=== PATIENT | male | born 1975 | race Caucasian/White ===

== ENCOUNTER 2019-01-16 14:59 | Inpatient (IN) ==
[2019-01-16] MEDS ORDERED: MoRPHine SULFATE 10 MG/ML CARP/VIAL IV STA (15:19)
[2019-01-16] MEDS ORDERED: ONDANSETRON INJ 2 MG/ML 2 ML VIAL IV STA (15:19)
--- NOTE | 2019-01-16 15:43 | Emergency Department Note ---
History of Present Illness General Chief complaint: Groin Pain Stated complaint: L INGUINAL PAIN Time Seen by Provider: 01/16/19 15:10 History of Present Illness Maximum Pain Intensity: 10 43-year-old male [employer] inmate who presents to emergency department with complaint of progressively worsening swelling and pain in the left scrotum and hip region. The patient was in the emergency department 3 days ago with similar pain. He had a CT scan of the abdomen, as well as testicular ultrasound that showed a moderate sized nonreducible fat filled left inguinal hernia and moderate sized left hydrocele. The patient was evaluated on his last visit by Dr. Odonnell, general surgeon, who indicated that emergent surgery was not warranted, and that the patient should follow-up with his general surgeon at [facility] for further management. The patient reports that he has not seen that surgeon within the past 3 days, likely secondary to the holiday. The patient reports that he is unable to eat because of nausea and vomiting. He also reports blood in his urine. He denies any prior history of testicular injuries, swelling or urinary difficulties. He also denies history of kidney stones. The patient rates his discomfort a 10 out of 10. Home Medications Home Medications Medication Instructions Recorded Confirmed Type aspirin [Aspir-81] 81 mg PO DAILY 01/13/19 01/16/19 History atorvastatin 40 mg PO HS 01/13/19 01/16/19 History fluoxetine 20 mg PO HS 01/13/19 01/16/19 History insulin glargine [Lantus Solostar 30 unit SUBCUT .DAILY AT 1630 01/13/19 01/16/19 History U-100 Insulin] insulin regular human [Humulin R 1 sliding scale dose SUBCUT 01/13/19 01/16/19 History Regular U-100 Insuln] USEASDIRECTD levetiracetam 250 mg PO HS 01/13/19 01/16/19 History lisinopril 5 mg PO DAILY 01/13/19 01/16/19 History trazodone 50 mg PO HS 01/13/19 01/16/19 History ibuprofen 600 mg PO TID PRN 01/16/19 01/16/19 History Allergies Allergy/AdvReac Type Severity Reaction Status Date / Time iodine Allergy Severe Unknown Verified 01/16/19 15:25 shellfish derived Allergy Severe Unknown Verified 01/16/19 15:25 penicillin G Allergy Unknown Verified 01/16/19 21:23 Past Med/Surg History Medical History Hydrocele in adult Epilepsy Hyperlipidemia Hypertension Type 1 diabetes Surgical History Status post left inguinal herniorrhaphy Family History Other No pertinent family history in first degree relatives Social History Preferred Language: Romanian Communication Ability: Effective Ncr Operator Required: No Beliefs That Will Affect Care: None marital status: Single Current Living Situation: Other Current Living Situation Comment: [facility] current occupational status: employed Feels Safe at Home: Yes Smoking Status: Never smoker Hx Alcohol Use: No Hx Substance Use: No Review of Systems 10 system review was performed and was negative except for pertinent positives and negatives as indicated in history of present illness Physical Exam Vital Signs Vital Signs - 24 hr 01/16/19 15:03 01/16/19 16:07 01/16/19 16:58 Temperature 36.9 C Temperature Source Oral Sepsis Recent Fever Within 48 Hours No Sepsis Action Taken by Nursing No Action Required Pulse Rate 90 Pulse Rate [Finger] 89 73 Respiratory Rate 20 17 Respiratory Effort / Characteristics Non-Labored Respiratory Depth Normal Respiratory Pattern Regular Blood Pressure 88/62 L Blood Pressure [Right Arm] 105/63 101/61 Blood Pressure Mean 70 Blood Pressure Mean [Right Arm] 77 74 Pulse Oximetry 99 99 97 Oxygen Delivery Method Room Air Room Air Room Air 01/16/19 18:29 Temperature Temperature Source Sepsis Recent Fever Within 48 Hours Sepsis Action Taken by Nursing Pulse Rate Pulse Rate [Finger] 84 Respiratory Rate 16 Respiratory Effort / Characteristics Respiratory Depth Respiratory Pattern Blood Pressure Blood Pressure [Right Arm] 106/74 Blood Pressure Mean Blood Pressure Mean [Right Arm] 84 Pulse Oximetry 99 Oxygen Delivery Method Room Air CONSTITUTIONAL: Healthy and well nourished. Alert and oriented X 3. Patient appears in moderate discomfort. HEENT: Normocephalic, atraumatic. Pupils equal, round and reactive. No scleral icterus or conjunctival injection. NECK: Full active range of motion without discomfort. LYMPHATICS: No cervical chain adenopathy. RESPIRATORY: Clear to auscultation bilaterally with no wheezing, crackles, rhonchi or stridor. CARDIOVASCULAR: Regular rate and rhythm with no murmurs, rubs or gallops. GASTROINTESTINAL: Bowel sounds present in all quadrants. Patient has mild left lower quadrant tenderness to palpation. Surgical incision from the patient's recent inguinal herniorrhaphy has healed well without any induration, fluctuance or diastases. Negative McBurney's point tenderness. Negative CVA tenderness. No abdominal rigidity, guarding or rebound. genitourinary: The patient has a large palpable mass within the left scrotum. Testicle appears symmetric in size compared to the right. No urethral drainage or penile lesions. MUSCULOSKELETAL: Full range of motion of all joints without discomfort. No worsening pain with logroll of the left hip. He has mild discomfort with flexion and extension. INTEGUMENTARY: No rash or other significant dermatologic conditions noted. HEMATOLOGIC: No ecchymosis or petechiae. PSYCHIATRIC: Flat affect. NEUROLOGIC: No focal neurologic deficits noted. Course Patient history and physical exam were performed. Nurse's notes were reviewed. I did review documentation from the patient's last ED visit on 01/13/2019. As indicated in HPI, the patient did have CT of the abdomen and pelvis, and scrotal ultrasound that confirmed a moderate sized fat filled left inguinal hernia and moderate-sized left hydrocele. Sonographic appearance of the testicles and epididymis were normal. Vital signs from today were reviewed, showing a blood pressure of 88/62. Prior vital signs from the last visit were normal. The patient is not febrile or tachycardic. IV access was established, and labs were drawn. The patient was hydrated with a liter normal saline, and was administered IV morphine and Zofran for pain. Prior to imaging studies, I did consult Dr. Odonnell, general surgeon, who evaluated the patient on his last visit. Dr. Odonnell did come to the emergency department and reexamined the patient, and is certain that the patient is not experiencing symptoms secondary to incarcerated hernia, and recommended continued follow-up with his general surgeon who did his inguinal herniorrhaphy. He also recommended urology consultation as well, although he suspects that the appearance of the hydrocele has not likely changed as he reports that scrotal swelling is similar to his last exam 3 days ago. I therefore ordered a repeat scrotal ultrasound, showing concern for possible testicular ischemia versus torsion. The case was further discussed with Dr. Bailey, ED attending physician, who recommended urology consultation. I then discussed the case further with Dr. Singh, urologist on-call who indicated several different possibilities, including cord ischemia and testicular ischemia/torsion. He reported that he would review ultrasound studies and make a determination on conservative managem ent versus orchiectomy. He requested n.p.o. status, hospitalist consultation for admission, and broad-spectrum antibiotic coverage. I did discuss the case with our pharmacist who recommended Zosyn IV antibiotics. It was also suggested that Atul's gangrene was in the differentials, therefore CT of the pelvis with IV contrast was performed and did not show any findings of Atul's gangrene. I did discuss the case with the [facility] hospitalist service, who evaluated the patient and will be admitting the patient. Please see the hospitalist service and urologist dictations for further treatment and final disposition. Administered Medications Atorvastatin Calcium (Lipitor) 40 mg PO HS VERA Stop: 02/15/19 21:44 Last Admin: 01/16/19 22:26 Dose: 40 mg Documented by: [id number] Fluoxetine HCl (Prozac) 20 mg PO HS VERA Stop: 02/15/19 21:44 Last Admin: 01/16/19 22:26 Dose: 20 mg Documented by: [id number] Sodium Chloride (Nss 1000ml) 1,000 mls @ 125 mls/hr IV .Q8H VERA Stop: 01/17/19 13:15 Last Admin: 01/16/19 22:22 Dose: 125 mls/hr Documented by: [id number] Insulin Aspart (Novolog Flexpen) 0 units SC ACHS VERA Stop: 02/15/19 21:44 Last Admin: 01/16/19 22:43 Dose: 11 units Documented by: [id number] Cosigned by: [id number] Insulin Glargine (Lantus Solostar Pen) 30 units SQ DAILY@1630 VERA Stop: 02/15/19 21:44 Last Admin: 01/16/19 22:41 Dose: 30 units Documented by: [id number] Cosigned by: [id number] Ketorolac Tromethamine (Toradol) 30 mg IV Q6 VERA Stop: 01/21/19 22:29 Last Admin: 01/16/19 22:26 Dose: 30 mg Documented by: [id number] Levetiracetam (Keppra) 250 mg PO [facility] Stop: 02/15/19 21:44 Last Admin: 01/16/19 22:26 Dose: 250 mg Documented by: [id number] Trazodone HCl (Desyrel) 50 mg PO [facility] Stop: 02/15/19 21:44 Last Admin: 01/16/19 22:25 Dose: 50 mg Documented by: [id number] Discontinued Medications Hydromorphone HCl (Dilaudid) 1 mg IV NOW STA Stop: 01/16/19 17:26 Last Admin: 01/16/19 17:36 Dose: 1 mg Documented by: [id number] Hydromorphone HCl (Dilaudid) 1 mg IV NOW STA Stop: 01/16/19 20:15 Last Admin: 01/16/19 22:02 Dose: Not Given Documented by: [id number] Piperacillin Sod/Tazobactam Sod (Zosyn) 4.5 gm in 120 mls @ 240 mls/hr IV NOW ONE Stop: 01/16/19 17:41 Last Infusion: 01/16/19 17:48 Dose: 0 mls/hr Documented by: [id number] Admin: 01/16/19 17:17 Dose: 240 mls/hr Documented by: [id number] Ioversol (Optiray 320 100ml) 90 ml IV ONCE PRN PRN Reason: Interaction Checking Stop: 01/20/19 18:05 Last Admin: 01/16/19 18:07 Dose: 90 ml Documented by: [id number] Morphine Sulfate (Morphine Sulfate) 8 mg IV NOW STA Stop: 01/16/19 15:20 Last Admin: 01/16/19 15:45 Dose: 8 mg Documented by: [id number] Ondansetron HCl (Zofran) 4 mg IV NOW STA Stop: 01/16/19 15:20 Last Admin: 01/16/19 15:45 Dose: 4 mg Documented by: [id number] Medical Decision Making Medical Records Attestation: I reviewed the patient's medical records. Home Medications Current Medication List: was personally reviewed by me Laboratory Data Attestation: I reviewed the patient's lab results. Result diagrams: 01/16/19 15:40 01/16/19 15:40 Lab Results 07/07/19 07/07/19 Range/Units 15:40 15:40 WBC 10.89 H (4.8-10.8) K/uL RBC 4.31 L (4.7-6.1) M/uL Hgb 13.7 L (14.0-18.0) g/dL Hct 39.3 L (42-52) % MCV 91.2 (80-100) fL MCH 31.8 (25-34) pg MCHC 34.9 (32-36) g/dL RDW Std Deviation 43.3 (36.4-46.3) fL RDW Coeff of Molly 13.0 (11.5-14.5) % Plt Count 228 (130-400) K/uL MPV 10.8 H (7.4-10.4) fL Immature Gran % (Auto) 0.2 % Neut % (Auto) 75.1 % Lymph % (Auto) 14.0 % [place] % (Auto) 9.3 % Eos % (Auto) 1.1 % Baso % (Auto) 0.3 % Immature Gran # (Auto) 0.02 (0.00-0.02) K/uL Neut # (Auto) 8.18 H (1.4-6.5) K/uL Lymph # (Auto) 1.53 (1.2-3.4) K/uL [place] # (Auto) 1.01 H (0.11-0.59) K/uL Eos # (Auto) 0.12 (0-0.5) K/uL Baso # (Auto) 0.03 (0-0.2) K/uL Sodium 134 L (136-145) mmol/L Potassium 4.1 (3.5-5.1) mmol/L Chloride 97 L (98-107) mmol/L Carbon Dioxide 29 (21-32) mmol/L Anion Gap 8.0 (3-11) BUN 9 (7-18) mg/dl Creatinine 0.86 (0.6-1.4) mg/dl Est Cr Clr Drug Dosing 119.8 ml/min Est GFR ( Amer) 123.1 Est GFR (Non-Af Amer) 106.2 BUN/Creatinine Ratio 10.2 (10-20) Glucose 245 H (70-99) mg/dl Calcium 8.9 (8.5-10.1) mg/dl Total Bilirubin 0.7 (0.2-1) mg/dl AST 11 L (15-37) U/L ALT 15 (12-78) U/L Alkaline Phosphatase 88 (45-117) U/L Total Protein 7.8 (6.4-8.2) gm/dl Albumin 3.6 (3.4-5.0) gm/dl Globulin 4.2 H (2.5-4.0) gm/dl Albumin/Globulin Ratio 0.9 (0.9-2) Lipase 66 L (73-393) U/L Imaging Data Attestation: I personally reviewed and interpreted this imaging study as follows: My Impression: Ultrasound is concerning for vascular compromise to the left testicle. Complex moderate hydrocele containing septations and internal echoes are also noted on the right just report, and has slightly progressed from his last ultrasound [address] of the pelvis with IV contrast is not suggestive of Atul's gangrene. There is some enhancement within the scrotal wall, suggesting possibility of an infected hydrocele. Radiologist's Impression: TESTICULAR ULTRASOUND HISTORY: worsening L scrotal pain/mass - hernia hydrocele COMPARISON: Abdomen and pelvis CT 01/13/2019 and testicular ultrasound 01/13/2019. FINDINGS: Right testis: 4.8 x 4.0 x 3.7 cm. No right inguinal hernia. There are no intratesticular masses. Normal color flow. No hydrocele. The epididymis is unremarkable. Left testis: 4.5 x 3.2 x 2.9 cm. The testis demonstrates a heterogeneous echotexture with diminished flow in comparison to the right. Complex moderate hydrocele containing septations and internal echoes. IMPRESSION: 1. The left testis demonstrates a heterogeneous echotexture with diminished flow in comparison to the right. Therefore, this raises the possibility of vascular compromise/torsion. Urology consultation recommended. 2. Complex moderate hydrocele containing septations and internal echoes. This has slightly progressed. 3. No evidence for a right or left inguinal hernia. 3. These findings were discussed with the patient's physician assistant housekeeping manager, Salas Nuñez, at 4:45 PM on 01/16/2019. CT pelvis w/IV con only HISTORY: Scrotal swelling. R/O Atul's gangrene TECHNIQUE: Multiaxial CT images of the pelvis were performed following the use of intravenous contrast. COMPARISON STUDY: Abdomen and pelvis CT 01/13/2019. FINDINGS: Moderate left-sided hydrocele is again noted. There is enhancement within the scrotal wall which raises the possibility of an infected hydrocele. There is mild scrotal swelling. No soft tissue gas identified. Mild thickening and trace fluid within the left inguinal canal unchanged. This may be due to the recent operative change. The bladder is unremarkable. The visualized loops of bowel show no wall thickening or obstruction. No significant inguinal or pelvic lymphadenopathy. No fractures within the visualized osseous structures. IMPRESSION: 1. Moderate left-sided hydrocele which is not significantly changed. There is enhancement within the scrotal wall which raises the possibility of an infected hydrocele. 2. Mild scrotal swelling. No soft tissue gas identified. 3. Mild thickening and trace fluid within the left inguinal canal, unchanged. This may be due to the recent operative change. MDM Narrative Patient presents with progressively worsening pain and subjective progressive swelling of the left testicle and groin region. The patient has been evaluated by our general surgeon who does not feel that his current symptoms are secondary to his inguinal hernia. Ultrasound is concerning for possible testicular ischemia or torsion. Additional differentials considered include an cord injury, orchitis, infected hydrocele. At this point, I do not suspect acute cystitis, diverticulitis or other intra-abdominal etiologies. Impression & Plan Left hydrocele, Hernia, inguinal, left Discharge Plan Visit Data *Final* Discharge Date/Time: 01/16/19 21:09 Chief Complaint: Groin Pain Stated Complaint: L INGUINAL PAIN ED Provider: Ganesh Bailey ED Midlevel Provider: Joesph Nuñez Discharge Problem: Left hydrocele, Hernia, inguinal, left Patient Disposition: Admitted As Inpatient Discharge Instructions Interventions: ED Discharge Assessment Last Done: 01/16/19 21:09
[2019-01-16 15:48] LABS: Basophils # (auto) 0.03 K/uL (0-0.2); Basophils % (auto) 0.3 %; Eosinophils # (auto) 0.12 K/uL (0-0.5); Eosinophils % (auto) 1.1 %; Hematocrit (blood only) 39.3 % (42-52); Hemoglobin 13.7 g/dL (14.0-18.0); Immature Granulocytes # (auto) 0.02 K/uL (0.00-0.02); Immature Granulocytes % (auto) 0.2 %; Lymphocytes # (auto) 1.53 K/uL (1.2-3.4); Mean Corpuscular Hgb Conc 34.9 g/dL (32-36); Mean Corpuscular Volume 91.2 fL (80-100); Mean Platelet Volume 10.8 fL (7.4-10.4); Monocytes # (auto) 1.01 K/uL (0.11-0.59); Monocytes % (auto) 9.3 %; Neutrophils # (auto) 8.18 K/uL (1.4-6.5); Neutrophils % (auto) 75.1 %; Platelet Count 228 K/uL (130-400); RDW Standard Deviation 43.3 fL (36.4-46.3); Red Blood Count 4.31 M/uL (4.7-6.1); White Blood Count 10.89 K/uL (4.8-10.8)
[2019-01-16 16:05] LABS: Albumin Level 3.6 gm/dl (3.4-5.0); BUN Creatinine Ratio 10.2 (10-20); Calcium 8.9 mg/dl (8.5-10.1); Creatinine Clr Calc Pharmacy 119.8 ml/min; Est GFR (African American) 123.1; Est GFR (Non-African American) 106.2; Potassium 4.1 mmol/L (3.5-5.1)
[2019-01-16 16:08] LABS: Albumin Globulin Ratio 0.9 (0.9-2); Bilirubin,Total 0.7 mg/dl (0.2-1); Globulin 4.2 gm/dl (2.5-4.0); Total Protein 7.8 gm/dl (6.4-8.2)
--- NOTE | 2019-01-16 16:10 | Progress Note ---
Date of Service January 16, 2019 Assessment & Plan (1) Left hydrocele: Do not feel the patient has recurrent hernia could be repaired alleviate his current symptoms. I believe his symptoms are related to his testicle and scrotum hydrocele. I suppose there could be some venous engorgement on his prior hernia repair. I do not feel trickle intervention will improve this situation. I do feel he may benefit from evaluation by a urologist for another opinion. I also feel that he can follow-up with his surgeon in [place]. Subjective I was called by the emergency room regarding the return of this patient who I saw on . Patient had open left inguinal hernia repair 3 weeks prior [facility] in [place]. He is complaining of left testicular discomfort and tenderness and enlargement. I did not feel a hernia at that time I felt most of his symptoms were coming from his testicle and scrotum from a hydrocele. Did not feel that he had an incarcerated hernia. Physical Exam Physical Exam: Check the patient in the emergency room grossly exam is completely the same as it was 3 days prior. He appears well do not feel a hernia sac. Minimal tenderness in the inguinal area do not feel he has an incarcerated hernia. Scrotum appears the same size he does have some tenderness. Results & Data Vital Signs (Past 12 Hours) Vital Signs Temp Pulse Resp BP Pulse Ox 01/16/19 15:03 36.9 C 90 20 88/62 L 99
--- NOTE | 2019-01-16 16:47 | Ultrasound Report ---
TESTICULAR ULTRASOUND HISTORY: worsening L scrotal pain/mass - hernia hydrocele COMPARISON: Abdomen and pelvis CT 01/13/2019 and testicular ultrasound 01/13/2019. FINDINGS: Right testis: 4.8 x 4.0 x 3.7 cm. No right inguinal hernia. There are no intratesticular masses. Norm al color flow. No hydrocele. The epididymis is unremarkable. Left testis: 4.5 x 3.2 x 2.9 cm. The testis demonstrates a heterogeneous echotexture with diminished flow in comparison to the right. Complex moderate hydrocele containing septations and internal echoes . IMPRESSION: 1. The left testis demonstrates a heterogeneous echotexture with diminished flow in comparison to the right. Therefore, this raises the possibility of vascular compromise/torsion. Urology consultation r ecommended. 2. Complex moderate hydrocele containing septations and internal echoes. This has slightly progressed . 3. No evidence for a right or left inguinal hernia. 3. These findings were discussed with the patient's physician medicine assistant, Salas Nuñez, at 4:45 PM on 01/16/2019. Electronically signed by: Carmelo Núñez M.D. 01/16/2019 4:46 PM
[2019-01-16] MEDS ORDERED: PIPERACILLIN/TAZOBACTAM 4.5 GM/120 ML BAG IV ONE (17:12)
[2019-01-16] MEDS ORDERED: PIPERACILL/TAZOBAC CONSULT ACTIVE PRN ×2 (17:12→21:16)
[2019-01-16] MEDS ORDERED: HYDROmorphone INJ 1 MG/ML SYRINGE IV STA ×2 (17:25→20:14)
[2019-01-16] MEDS ORDERED: IOVERSOL 100ml IV PRN (18:06)
--- NOTE | 2019-01-16 18:17 | CT Scan Report ---
CT pelvis w/IV con only HISTORY: Scrotal swelling. R/O Atul's gangrene TECHNIQUE: Multiaxial CT images of the pelvis were performed following the use of intravenous contras t. COMPARISON STUDY: Abdomen and pelvis CT 01/13/2019. FINDINGS: Moderate left-sided hydrocele is again noted. There is enhancement within the scrotal wall which raises the possibility of an infected hydrocele. There is mild scrotal swelling. No soft tissue gas identified. Mild thickening and trace fluid within the left inguinal canal unchanged. This may b e due to the recent operative change. The bladder is unremarkable. The visualized loops of bowel show no wall thickening or obstruction. No significant inguinal or pelvic lymphadenopathy. No fractures w ithin the visualized osseous structures. IMPRESSION: 1. Moderate left-sided hydrocele which is not significantly changed. There is enhancement within the scrotal wall which raises the possibility of an infected hydrocele. 2. Mild scrotal swelling. No soft tissue gas identified. 3. Mild thickening and trace fluid within the left inguinal canal, unchanged. This may be due to the recent operative change. Electronically signed by: Carmelo Núñez M.D. 01/16/2019 6:15 PM
--- NOTE | 2019-01-16 20:11 | History & Physical Report ---
Date of Service January 16, 2019 Assessment & Plan (1) Hernia, inguinal, left: s/p repair. CT with normal post-operative changes. No need for surgical intervention at this time. Patient was evaluated by Dr. Odonnell in ER -Continue pain control and bowel regimen Present on Admission?: Yes (2) Left groin pain: Concern for testicular torsion vs infected hydorcele vs normal postoperative changes. Patient is in considerable pain -Admit to medical floor -Consult Urology - appreciate assistance with this case -Will keep patient NPO, hold ASA and Lisinopril for possible surgical intervention -Control of pain and nausea with Dilaudid PRN and Zofran PRN -Empiric Zosyn (patient as allergy listed to PCN, received dose of Zosyn in ER at 17:17 and tolerated it without difficulty) Present on Admission?: Yes (3) Left hydrocele: As above -Urology consultation appreciated -Pain control -Empiric antibiotics (4) Diabetes: Patient with insulin dependent DM -Continue lantus 30u qHS (administer half dose while NPO) -ISS -CC diet when cleared by Urology Present on Admission?: Yes (5) Hypertension: Blood pressure well controlled at present -Holding Lisinopril for now for possible surgery -Continue to monitor Present on Admission?: Yes (6) Dyslipidemia: Chronic -Continue Atorvastatin Present on Admission?: Yes (7) Epilepsy: Chronic -Continue Keppra F/E/N - NSS at 125mL/hr x 2 liters, monitor electroltyes and replete as needed, NPO for now Ppx - Low risk for DVT Code - Full Dispo - Admit to medical floor History of Present Illness Chief Complaint: Left groin pain Primary Care Provider: VALORIE Swann Hernán Flowers is a 43yo C male with history of HTN/HLP/DM/Epilepsy, recent left inguinal hernia repair presenting with worsening left groin pain and testicular swelling and firmness. Patient reports chills, fever of 101 and hematuria. No additional complaints at this time Allergies Allergy/AdvReac Type Severity Reaction Status Date / Time iodine Allergy Severe Unknown Verified 01/16/19 15:25 shellfish derived Allergy Severe Unknown Verified 01/16/19 15:25 penicillin G Allergy Unknown Verified 01/16/19 21:23 Home Medications Home Medications Medication Instructions Recorded Confirmed Type aspirin [Aspir-81] 81 mg PO DAILY 01/13/19 01/16/19 History atorvastatin 40 mg PO HS 01/13/19 01/16/19 History fluoxetine 20 mg PO HS 01/13/19 01/16/19 History insulin glargine [Lantus Solostar 30 unit SUBCUT .DAILY AT 1630 01/13/19 01/16/19 History U-100 Insulin] insulin regular human [Humulin R 1 sliding scale dose SUBCUT 01/13/19 01/16/19 History Regular U-100 Insuln] USEASDIRECTD levetiracetam 250 mg PO HS 01/13/19 01/16/19 History lisinopril 5 mg PO DAILY 01/13/19 01/16/19 History trazodone 50 mg PO HS 01/13/19 01/16/19 History ibuprofen 600 mg PO TID PRN 01/16/19 01/16/19 History Past Med/Surg History Medical History Hydrocele in adult Epilepsy Hyperlipidemia Hypertension Type 1 diabetes Surgical History Status post left inguinal herniorrhaphy Family History Other No pertinent family history in first degree relatives Social History Preferred Language: Mauritanian Communication Ability: Effective Lathe Setup Operator Required: No Beliefs That Will Affect Care: None marital status: Single Current Living Situation: Other Current Living Situation Comment: [facility] current occupational status: employed Feels Safe at Home: Yes Smoking Status: Never smoker Hx Alcohol Use: No Hx Substance Use: No Review of Systems Review of Systems: All systems reviewed & are unremarkable except as noted in HPI & below Physical Exam Physical Exam: General: patient resting comfortably, NAD, non-toxic in appearance, AA&O x 4 Skin: warm, dry, no rashes or lesions, multiple tattoos present, incision from prior hernia surgery well approximated, no bleeding/drainage/erythema or dehiscence HEENT: NC/AT, PERRL, EOMI, anicteric sclera, conjunctiva without injection, external ear normal to inspection and nontender, nares patent, moist mucus membranes, dentition intact, no oropharyngeal lesions, neck supple, trachea midline, no LAD, no thyromegaly, no JVD Heart: +S1/S2, regular, no m/r/g Lungs: equal air entry bilaterally, no rales/rhonchi/wheezes Abd: +BS, soft, NT/ND, no masses/organomegaly/ascites : left scrotal edema, erythema, firm and tender, pain unchanged with elevation of scrotum Ext: warm, 2+ pulses in UE/LE bilaterally, no clubbing/cyanosis or edema Neuro: nonfocal, patient AA&O x 4, speech intact, no facial droop, moving all extremities on command with equal strength 5/5 Results & Data Vital Signs (Past 12 Hours) Vital Signs Temp Pulse Pulse Resp BP BP Pulse Ox 01/16/19 18:29 84 16 106/74 99 01/16/19 16:58 73 17 101/61 97 01/16/19 16:07 89 105/63 99 01/16/19 15:03 36.9 C 90 20 88/62 L 99 Laboratory Results Lab Results 01/16/19 01/16/19 01/16/19 Range/Units 15:40 15:40 22:14 WBC 10.89 H (4.8-10.8) K/uL RBC 4.31 L (4.7-6.1) M/uL Hgb 13.7 L (14.0-18.0) g/dL Hct 39.3 L (42-52) % MCV 91.2 (80-100) fL MCH 31.8 (25-34) pg MCHC 34.9 (32-36) g/dL RDW Std Deviation 43.3 (36.4-46.3) fL RDW Coeff of Molly 13.0 (11.5-14.5) % Plt Count 228 (130-400) K/uL MPV 10.8 H (7.4-10.4) fL Immature Gran % (Auto) 0.2 % Neut % (Auto) 75.1 % Lymph % (Auto) 14.0 % [place] % (Auto) 9.3 % Eos % (Auto) 1.1 % Baso % (Auto) 0.3 % Immature Gran # (Auto) 0.02 (0.00-0.02) K/uL Neut # (Auto) 8.18 H (1.4-6.5) K/uL Lymph # (Auto) 1.53 (1.2-3.4) K/uL [place] # (Auto) 1.01 H (0.11-0.59) K/uL Eos # (Auto) 0.12 (0-0.5) K/uL Baso # (Auto) 0.03 (0-0.2) K/uL Sodium 134 L (136-145) mmol/L Potassium 4.1 (3.5-5.1) mmol/L Chloride 97 L (98-107) mmol/L Carbon Dioxide 29 (21-32) mmol/L Anion Gap 8.0 (3-11) BUN 9 (7-18) mg/dl Creatinine 0.86 (0.6-1.4) mg/dl Est Cr Clr Drug Dosing 119.8 ml/min Est GFR ( Amer) 123.1 Est GFR (Non-Af Amer) 106.2 BUN/Creatinine Ratio 10.2 (10-20) Glucose 245 H (70-99) mg/dl POC Glucose 240 H (70-99) Calcium 8.9 (8.5-10.1) mg/dl Total Bilirubin 0.7 (0.2-1) mg/dl AST 11 L (15-37) U/L ALT 15 (12-78) U/L Alkaline Phosphatase 88 (45-117) U/L Total Protein 7.8 (6.4-8.2) gm/dl Albumin 3.6 (3.4-5.0) gm/dl Globulin 4.2 H (2.5-4.0) gm/dl Albumin/Globulin Ratio 0.9 (0.9-2) Lipase 66 L (73-393) U/L Diagnostic Findings CT pelvis w/IV con only HISTORY: Scrotal swelling. R/O Atul's gangrene TECHNIQUE: Multiaxial CT images of the pelvis were performed following the use of intravenous contrast. COMPARISON STUDY: Abdomen and pelvis CT 01/13/2019. FINDINGS: Moderate left-sided hydrocele is again noted. There is enhancement within the scrotal wall which raises the possibility of an infected hydrocele. There is mild scrotal swelling. No soft tissue gas identified. Mild thickening and trace fluid within the left inguinal canal unchanged. This may be due to the recent operative change. The bladder is unremarkable. The visualized loops of bowel show no wall thickening or obstruction. No significant inguinal or pelvic lymphadenopathy. No fractures within the visualized osseous structures. IMPRESSION: 1. Moderate left-sided hydrocele which is not significantly changed. There is enhancement within the scrotal wall which raises the possibility of an infected hydrocele. 2. Mild scrotal swelling. No soft tissue gas identified. 3. Mild thickening and trace fluid within the left inguinal canal, unchanged. This may be due to the recent operative change. Electronically signed by: Carmelo Núñez M.D. 01/16/2019 6:15 PM Dictated: 01/16/191811 Transcribed: 01/16/191811 ################################################## ################################################################################ ######### TESTICULAR ULTRASOUND HISTORY: worsening L scrotal pain/mass - hernia hydrocele COMPARISON: Abdomen and pelvis CT 01/13/2019 and testicular ultrasound 01/13/2019. FINDINGS: Right testis: 4.8 x 4.0 x 3.7 cm. No right inguinal hernia. There are no intratesticular masses. Normal color flow. No hydrocele. The epididymis is unremarkable. Left testis: 4.5 x 3.2 x 2.9 cm. The testis demonstrates a heterogeneous echotexture with diminished flow in comparison to the right. Complex moderate hydrocele containing septations and internal echoes. IMPRESSION: 1. The left testis demonstrates a heterogeneous echotexture with diminished flow in comparison to the right. Therefore, this raises the possibility of vascular compromise/torsion. Urology consultation recommended. 2. Complex moderate hydrocele containing septations and internal echoes. This has slightly progressed. 3. No evidence for a right or left inguinal hernia. 3. These findings were discussed with the patient's physician temporary administrative assistant, Salas Nuñez, at 4:45 PM on 01/16/2019. Electronically signed by: Carmelo Núñez M.D. 01/16/2019 4:46 PM Dictated: 01/16/19 1638 Transcribed: 01/16/191637 ECG Additional Comments: NSR at 72, normal axis and intervals, no acute ischemic changes Code Status & VTE Plan Code Status Full VTE Prophylaxis Plan VTE Prophylaxis will be ordered: Yes (1) Epilepsy Epilepsy type: unspecified (2) Diabetes Diabetes mellitus complication status: without complication Diabetes mellitus type: type 1 Qualified Code(s): E10.9 - Type 1 diabetes mellitus without complications (3) Hypertension Hypertension type: essential hypertension Qualified Code(s): I10 - Essential (primary) hypertension
[2019-01-16] MEDS ORDERED: GLUCAGON FOR INJ 1 MG VIAL SQ PRN (21:16)
[2019-01-16] MEDS ORDERED: GLUCOSE 10 TABS/TUBE PO PRN (21:16)
[2019-01-16] MEDS ORDERED: DEXTROSE 50% 50 ML SYRINGE IV PRN (21:16)
[2019-01-16] MEDS ORDERED: GLUCOSE 40% GEL 15 GM TUBE PO PRN (21:16)
[2019-01-16] MEDS ORDERED: ONDANSETRON INJ 2 MG/ML 2 ML VIAL IV PRN (21:16)
[2019-01-16] MEDS ORDERED: INSULIN ASPART 100 UNITS/ML 3 ML PEN SC SCH (21:45)
--- NOTE | 2019-01-16 21:49 | Urology Consultation ---
Date of Consultation January 16, 2019 Assessment & Plan (1) Hernia, inguinal, left: Pain control. (2) Left groin pain: Started on Abx with broad coverage. Presentation and association with previous repair of hernia. Discussed ischemia of testicle discussed. Discussed torsion or blocking of testicular artery with injury to cord. Discussed infection, orchitis, and possible infected hydrocele. Currently flow, but decreased. Discussed emergent scrotal exploration but also possible loss of testicle if appears necrotic or unsalvagable. Discussed observation. Discussed hydration and pain control and antibiotics. Improved with PRN medicaiton/ Will plan to monitor. If sudden change or major issue will consider urgent exploration. Presentation not typical for torsion. Most likely hematoma/hydrocele after hernia that is now inflammed and tender and infected. Reported 103 temp yesterday (3) Left hydrocele: See above. Possible orchitis with hydrocele. History of Present Illness Attending Physician: Shivani Mejia, DO History of Present Illness Patient with 3-4 days of severe pain in flank, groin, pelvis, and scrotum/testicle on left. Previously had hernia repair. Was seen 3 days ago and a hernia/fluid collection was found with a hydrocele. pain continued severe in waves. Saw in ER. Some worsening of issues with left hydrocele Poor pain control No fevers. no severe bleeding or other issues. Concern for possible orchitis or worsening issues with hydrocele. Some diminished flow in testicle. No history of torsion. NO other major change.s First developed issues approx 3 days after hernia repair. May have been hematoma around t esticle, then increased in size. Eventually became large and very tender and radiating into groin and back Allergies Allergy/AdvReac Type Severity Reaction Status Date / Time iodine Allergy Severe Unknown Verified 01/16/19 15:25 shellfish derived Allergy Severe Unknown Verified 01/16/19 15:25 penicillin G Allergy Unknown Verified 01/16/19 21:23 Home Medications Home Medications Medication Instructions Recorded Confirmed Type aspirin [Aspir-81] 81 mg PO DAILY 01/13/19 01/16/19 History atorvastatin 40 mg PO HS 01/13/19 01/16/19 History fluoxetine 20 mg PO HS 01/13/19 01/16/19 History insulin glargine [Lantus Solostar 30 unit SUBCUT .DAILY AT 1630 01/13/19 9 History U-100 Insulin] insulin regular human [Humulin R 1 sliding scale dose SUBCUT 01/13/19 01/16/19 History Regular U-100 Insuln] USEASDIRECTD levetiracetam 250 mg PO HS 01/13/19 01/16/19 History lisinopril 5 mg PO DAILY 01/13/19 01/16/19 History trazodone 50 mg PO HS 01/13/19 01/16/19 History ibuprofen 600 mg PO TID PRN 01/16/19 01/16/19 History Patient History Medical History Hydrocele in adult Epilepsy Hyperlipidemia Hypertension Type 1 diabetes Surgical History Status post left inguinal herniorrhaphy Family History Other No pertinent family history in first degree relatives Social History Preferred Language: Danish Communication Ability: Effective Slide Machine Tender Required: No Beliefs That Will Affect Care: None marital status: Single Current Living Situation: Other Current Living Situation Comment: [facility] current occupational status: employed Feels Safe at Home: Yes Smoking Status: Never smoker Hx Alcohol Use: No Hx Substance Use: No Review of Systems Review of Systems: All systems reviewed & are unremarkable except as noted in HPI & below Physical Exam Constitutional: well developed and well nourished; no acute distress and not ill appearing Eyes: eyes not dysmorphic ENMT: Ears: no hearing impairment Nose: no external nose abnormality Neck: normal visual inspection and trachea midline; no tracheal deviation Respiratory: normal respiratory effort; no respiratory distress and no labored breathing Cardiovascular: Rate/Rhythm: not tachycardic Gastrointestinal (Abdomen): Percussion/Palpation: abdomen soft; no guarding and abdomen not rigid Musculoskeletal: Spine: normal cervical ROM Extremities: full ROM of extremities Skin: no rashes and no lesions Neurologic: CN's II-XI intact bilaterally Speech / Cognition: normal speech Motor/Sensory: no tremor Psychiatric: Orientation: alert and oriented x 3 Affect: + flat affect Genitourinary: + scrotum abnormality, + hydrocele and + testicular swelling Lymphatic: no lymphadenopathy Results & Data Vital Signs (Past 12 Hours) Vital Signs Temp Pulse Pulse Resp BP BP Pulse Ox 01/16/19 21:09 80 16 98 01/16/19 20:05 83 20 110/74 98 01/16/19 18:29 84 16 106/74 99 01/16/19 16:58 73 17 101/61 97 01/16/19 16:07 89 105/63 99 01/16/19 15:03 36.9 C 90 20 88/62 L 99
[2019-01-16] MEDS: SODIUM CHLORIDE 0.9% 1000ML 1,000 ML IV SCH (22:22)
[2019-01-16] MEDS: TRAZODONE HCL 50 MG TAB PO SCH (22:25)
[2019-01-16] MEDS: levETIRAcetam 250 MG TAB PO SCH (22:26)
[2019-01-16] MEDS: ATORVASTATIN 40 MG TAB PO SCH (22:26)
[2019-01-16] MEDS: KETOROLAC 30 MG/ML VIAL IV SCH (22:26)
[2019-01-16] MEDS: FLUOXETINE HCL 20 MG CAP PO SCH (22:26)
[2019-01-16] MEDS: INSULIN GLARGINE SOLOSTAR 100 UNITS/ML 3 ML PEN SQ SCH (22:41)
[2019-01-16 23:05] LABS: Appearance Urine Clear (Clear); Bilirubin Urine Negative (Negative); Blood Urine Negative (Negative); Color Urine Yellow; Glucose Urine UA 3+ (Negative); Leukocyte Esterase Urine Negative (Negative); Nitrite Urine Negative (Negative); Protein Urine Negative (Negative); Specific Gravity Urine > 1.045 (1.000-1.030); Urobilinogen Urine Negative (Negative)
[2019-01-16 23:24] LABS: Ketones Urine 3+ (Negative)
[2019-01-17] MEDS: PIPERACILLIN/TAZOBACTAM 3.375 GM in DEXTROSE 5% 100 ML IV SCH ×4 (00:25→23:40)
[2019-01-17] MEDS: HYDROmorphone INJ 1 MG/ML SYRINGE IV PRN ×4 (00:29→20:54)
[2019-01-17] MEDS ORDERED: Nursing to Pharmacy Communication ONE ×2 (03:01→09:07)
[2019-01-17] MEDS ORDERED: INSULIN ASPART 100 UNITS/ML 3 ML PEN SC SCH (06:00)
[2019-01-17] MEDS: KETOROLAC 30 MG/ML VIAL IV SCH ×4 (06:01→23:40)
[2019-01-17] MEDS: SODIUM CHLORIDE 0.9% 1000ML 1,000 ML IV SCH (06:05)
[2019-01-17 06:34] LABS: Basophils # (auto) 0.03 K/uL (0-0.2); Basophils % (auto) 0.3 %; Eosinophils # (auto) 0.31 K/uL (0-0.5); Eosinophils % (auto) 2.8 %; Hematocrit (blood only) 37.2 % (42-52); Hemoglobin 12.4 g/dL (14.0-18.0); Immature Granulocytes # (auto) 0.02 K/uL (0.00-0.02); Immature Granulocytes % (auto) 0.2 %; Lymphocytes % (auto) 24.6 %; Mean Corpuscular Hgb Conc 33.3 g/dL (32-36); Mean Corpuscular Volume 92.1 fL (80-100); Mean Platelet Volume 10.8 fL (7.4-10.4); Monocytes # (auto) 1.14 K/uL (0.11-0.59); Monocytes % (auto) 10.4 %; Neutrophils # (auto) 6.77 K/uL (1.4-6.5); Neutrophils % (auto) 61.7 %; Platelet Count 215 K/uL (130-400); RDW Coefficient of Variation 13.1 % (11.5-14.5); Red Blood Count 4.04 M/uL (4.7-6.1); White Blood Count 10.97 K/uL (4.8-10.8)
[2019-01-17 07:03] LABS: BUN Creatinine Ratio 14.1 (10-20); Calcium 8.8 mg/dl (8.5-10.1); Creatinine Clr Calc Pharmacy 127.2 ml/min; Est GFR (African American) 126.2; Est GFR (Non-African American) 108.9; Potassium 3.7 mmol/L (3.5-5.1)
--- NOTE | 2019-01-17 07:27 | Urology Progress Note ---
Date of Service January 17, 2019 Assessment & Plan (1) Left hydrocele: 43yo M inmate from [facility] with possibly Left orchitis infected Left complex hydrocele after hematoma s/p Left inguinal hernia repair on 12/16/18, performed at [facility]. Status appears to be stable this AM. Continue IV Zosyn. Continue scheduled Toradol, PRN dilaudid Please begin consistent use of ice to scrotum; 20 min on, 20 min off - order placed. Pt status and plan of care reviewed with Dr. Singh. Will arrange for scrotal US this afternoon to assess Left testicular bloodflow. Okay to provide diet. No indication for surgical intervention at this time. Will continue to monitor with primary service. Subjective 43yo M inmate from [facility] with possibly Left orchitis infected Left hematoma/hydrocele s/p Left inguinal hernia repair on 12/16/18, performed at [facility]. Pt still reporting severe pain throughout the night. Nontoxic, calm this AM. On scheduled IV Toradol, receiving PRN Dilaudid when due. Some nausea, denies emesis. Denies dysuria or hematuria. Denies chills, Tmax 37.8C this AM. Cr within normal limits WBC remains slightly elevated at 10.9 this AM Review of Systems Review of Systems: All systems reviewed & are unremarkable except as noted in HPI & below Physical Exam Physical Exam: A&Ox3 RRR Abd soft lower left inguinal area extending to left scrotum, tender and firm. No surrounding cellulitis, nonerythematous, no increased warmth left inguinal incision well approximated, CDI Results & Data Vital Signs (Past 12 Hours) Vital Signs Temp Pulse Pulse Resp BP BP Pulse Ox 01/16/19 22:51 37.8 C H 83 16 103/62 96 01/16/19 21:53 37.4 C 83 16 104/69 98 01/16/19 21:09 80 16 98 01/16/19 20:05 83 20 110/74 98 Laboratory Results Laboratory Results - last 48 hr 01/16/19 01/16/19 01/16/19 15:40 15:40 22:14 WBC 10.89 H RBC 4.31 L Hgb 13.7 L Hct 39.3 L MCV 91.2 MCH 31.8 MCHC 34.9 RDW Std Deviation 43.3 RDW Coeff of Molly 13.0 Plt Count 228 MPV 10.8 H Immature Gran % (Auto) 0.2 Neut % (Auto) 75.1 Lymph % (Auto) 14.0 [place] % (Auto) 9.3 Eos % (Auto) 1.1 Baso % (Auto) 0.3 Immature Gran # (Auto) 0.02 Neut # (Auto) 8.18 H Lymph # (Auto) 1.53 [place] # (Auto) 1.01 H Eos # (Auto) 0.12 Baso # (Auto) 0.03 Sodium 134 L Potassium 4.1 Chloride 97 L Carbon Dioxide 29 Anion Gap 8.0 BUN 9 Creatinine 0.86 Est Cr Clr Drug Dosing 119.8 Est GFR ( Amer) 123.1 Est GFR (Non-Af Amer) 106.2 BUN/Creatinine Ratio 10.2 Glucose 245 H POC Glucose 240 H Calcium 8.9 Total Bilirubin 0.7 AST 11 L ALT 15 Alkaline Phosphatase 88 Total Protein 7.8 Albumin 3.6 Globulin 4.2 H Albumin/Globulin Ratio 0.9 Lipase 66 L Urine Color Urine Appearance Urine pH Ur Specific [place] Urine Protein Urine Glucose (UA) Urine Ketones Urine Blood Urine Nitrite Urine Bilirubin Urine Urobilinogen Ur Leukocyte Esterase Nasal Screen MRSA (PCR) 01/16/19 01/16/19 01/17/19 22:35 22:50 05:48 WBC RBC Hgb Hct MCV MCH MCHC RDW Std Deviation RDW Coeff of Molly Plt Count MPV Immature Gran % (Auto) Neut % (Auto) Lymph % (Auto) [place] % (Auto) Eos % (Auto) Baso % (Auto) Immature Gran # (Auto) Neut # (Auto) Lymph # (Auto) [place] # (Auto) Eos # (Auto) Baso # (Auto) Sodium Potassium Chloride Carbon Dioxide Anion Gap BUN Creatinine Est Cr Clr Drug Dosing Est GFR ( Amer) Est GFR (Non-Af Amer) BUN/Creatinine Ratio Glucose POC Glucose 64 L* Calcium Total Bilirubin AST ALT Alkaline Phosphatase Total Protein Albumin Globulin Albumin/Globulin Ratio Lipase Urine Color Yellow Urine Appearance Clear Urine pH 5.0 Ur Specific [place] > 1.045 H Urine Protein Negative Urine Glucose (UA) 3+ H Urine Ketones 3+ H Urine Blood Negative Urine Nitrite Negative Urine Bilirubin Negative Urine Urobilinogen Negative Ur Leukocyte Esterase Negative Nasal Screen MRSA (PCR) Negative 01/17/19 01/17/19 01/17/19 06:12 06:12 06:17 WBC 10.97 H RBC 4.04 L Hgb 12.4 L Hct 37.2 L MCV 92.1 MCH 30.7 MCHC 33.3 RDW Std Deviation 44.0 RDW Coeff of Molly 13.1 Plt Count 215 MPV 10.8 H Immature Gran % (Auto) 0.2 Neut % (Auto) 61.7 Lymph % (Auto) 24.6 [place] % (Auto) 10.4 Eos % (Auto) 2.8 Baso % (Auto) 0.3 Immature Gran # (Auto) 0.02 Neut # (Auto) 6.77 H Lymph # (Auto) 2.70 [place] # (Auto) 1.14 H Eos # (Auto) 0.31 Baso # (Auto) 0.03 Sodium 138 Potassium 3.7 Chloride 102 Carbon Dioxide 30 Anion Gap 7.0 BUN 11 Creatinine 0.81 Est Cr Clr Drug Dosing 127.2 Est GFR ( Amer) 126.2 Est GFR (Non-Af Amer) 108.9 BUN/Creatinine Ratio 14.1 Glucose 123 H POC Glucose 122 H Calcium 8.8 Total Bilirubin AST ALT Alkaline Phosphatase Total Protein Albumin Globulin Albumin/Globulin Ratio Lipase Urine Color Urine Appearance Urine pH Ur Specific [place] Urine Protein Urine Glucose (UA) Urine Ketones Urine Blood Urine Nitrite Urine Bilirubin Urine Urobilinogen Ur Leukocyte Esterase Nasal Screen MRSA (PCR)
[2019-01-17] MEDS ORDERED: OXYCODONE HCL SOLN 5 MG/5 ML UDC PO PRN (13:20)
--- NOTE | 2019-01-17 13:21 | Hospitalist Progress Note ---
Date of Service January 17, 2019 Assessment & Plan (1) Left groin pain: Concern for testicular torsion vs infected hydorcele vs normal postoperative changes. Patient is in considerable pain. - Urology consulted - No emergent operative need. Repeat scrotal doppler pending. - Pain control - Continue Zosyn (2) Hernia, inguinal, left: S/p repair at [facility]. CT a/p on 01/16 showed normal post-operative changes. Patient was evaluated by Dr. Odonnell in ER. - No operative needs at this time. - Continue pain control and bowel regimen (3) Left hydrocele: As above. (4) Diabetes: Patient with insulin dependent DM. - Continue Lantus 30u qHS - Sliding scale insulin (5) Hypertension: Blood pressure well controlled at present. - Holding Lisinopril for now for possible surgery - Continue to monitor (6) Dyslipidemia: Chronic. - Continue Atorvastatin (7) Epilepsy: Chronic. - Continue Keppra (8) DVT prophylaxis: SCDs - Low DVT risk per admission calculator Subjective Still with significant pain. Review of Systems Review of Systems: All systems reviewed & are unremarkable except as noted in HPI & below Physical Exam Constitutional: well developed and well nourished; no acute distress and not ill appearing Eyes: eyes not dysmorphic ENMT: Ears: no hearing impairment Nose: no external nose abnormality Neck: normal visual inspection and trachea midline; no tracheal deviation Respiratory: normal respiratory effort; no respiratory distress and no labored breathing Cardiovascular: Rate/Rhythm: not tachycardic Gastrointestinal (Abdomen): Percussion/Palpation: abdomen soft; no guarding and abdomen not rigid Musculoskeletal: Spine: normal cervical ROM Extremities: full ROM of extremities Skin: no rashes and no lesions Neurologic: CN's II-XI intact bilaterally Speech / Cognition: normal speech Motor/Sensory: no tremor Psychiatric: Orientation: alert and oriented x 3 Lymphatic: no lymphadenopathy Results & Data Vital Signs (Past 12 Hours) Vital Signs Temp Pulse Resp BP Pulse Ox 01/17/19 07:32 36.7 C 65 15 94/57 L 98 PG Care Time/CCT Total # of Minutes Spent Total Time Spent with Patient: Total time spent is greater than 50% in coordination of care (as documented) at patient's floor/unit and/or counseling patient: (1) Diabetes Diabetes mellitus type: type 1 Diabetes mellitus complication status: without complication Qualified Code(s): E10.9 - Type 1 diabetes mellitus without complications (2) Hypertension Hypertension type: essential hypertension Qualified Code(s): I10 - Essential (primary) hypertension (3) Epilepsy Epilepsy type: unspecified
[2019-01-17] MEDS: INSULIN ASPART 100 UNITS/ML 3 ML PEN SC SCH ×3 (13:36→21:53)
--- NOTE | 2019-01-17 13:36 | Ultrasound Report ---
US scrotum/testicle CLINICAL HISTORY: 43 years-old Male with timed at [id number], assess L testicle bloodflow. Acute left -sided scrotal pain COMPARISON STUDY: Scrotal ultrasound 01/16/2019 TECHNIQUE: Real-time, grayscale, and color Doppler sonography of the testes and scrotum is performed. Images are reviewed in the transverse and longitudinal planes. FINDINGS: RIGHT HEMISCROTUM: The right testis measures 6.1 x 3.4 x 2.6 cm and the parenchyma appears unremarkab le. No intratesticular mass is seen. Normal-appearing arterial inflow is present within the right uli ticle. The right epididymal head appears normal. No varicocele or hydrocele is identified. LEFT HEMISCROTUM: The left testis measures 4.9 x 3.0 x 3.2 cm and the parenchyma appears heterogeneou s with decreased flow compared to the right. No intratesticular mass is seen. Arterial inflow and bertha ous outflow is present. The left epididymal head appears normal. Small left varicocele. Moderate to l arge complex hydrocele with low-level echoes and internal septations has mildly increased in size com parison. Nonspecific edema of the left inguinal canal. IMPRESSION: 1. Heterogeneous appearance of the left testicle with decreased flow compared to the right appears un changed from comparison study dated 01/16/2019 again raising the possibility of testicular torsion. 2. Mildly increased size of the complex left-sided hydrocele. Correlate clinically to exclude pyocele . 3. Left-sided varicocele. 4. Normal appearance of the right hemiscrotum. The above report was generated using voice recognition software. It may contain grammatical, syntax o r spelling errors. Electronically signed by: Brian Oviedo M.D. 01/17/2019 1:35 PM
[2019-01-17] MEDS: OXYCODONE HCL IR 5 MG TAB (IMMEDIATE RELEASE) PO PRN ×2 (13:51→19:17)
[2019-01-17] MEDS: INSULIN GLARGINE SOLOSTAR 100 UNITS/ML 3 ML PEN SQ SCH (17:52)
[2019-01-17] MEDS: ATORVASTATIN 40 MG TAB PO SCH (20:54)
[2019-01-17] MEDS: levETIRAcetam 250 MG TAB PO SCH (20:54)
[2019-01-17] MEDS: FLUOXETINE HCL 20 MG CAP PO SCH (20:55)
[2019-01-17] MEDS: TRAZODONE HCL 50 MG TAB PO SCH (20:55)
[2019-01-18] MEDS: HYDROmorphone INJ 1 MG/ML SYRINGE IV PRN ×5 (01:11→21:47)
[2019-01-18] MEDS ORDERED: Nursing to Pharmacy Communication ONE ×2 (01:21→16:14)
[2019-01-18] MEDS: OXYCODONE HCL IR 5 MG TAB (IMMEDIATE RELEASE) PO PRN ×4 (03:42→20:44)
[2019-01-18] MEDS: KETOROLAC 30 MG/ML VIAL IV SCH (05:28)
[2019-01-18] MEDS: INSULIN ASPART 100 UNITS/ML 3 ML PEN SC SCH ×4 (06:12→20:47)
--- NOTE | 2019-01-18 07:17 | Urology Progress Note ---
Date of Service January 18, 2019 Assessment & Plan (1) Left hydrocele: 43yo M inmate from [facility] with possibly Left orchitis infected Left complex hydrocele after hematoma s/p Left inguinal hernia repair on 12/16/18, performed at [facility]. Pt continues to have difficulty with pain control. Pt evaluated with Dr. March at bedside today. Suspicion of torsion is low, worry for compression of inguinal canal contributing to decreased bloodflow to left testicle, however bloodflow is still present. Continue IV Zosyn. will place scheduled toradol on hold for now. General Surgery made aware, awaiting recommendations that will guide next steps in plan of care. Maintain NPO status. Will continue to follow with primary team. Subjective 43yo M inmate from [facility] with possibly Left orchitis infected Left hematoma/hydrocele s/p Left inguinal hernia repair on 12/16/18, performed at [facility]. Continues to report pain, utiliizing PRN medications consistently. Unable to utilize ice due to discomfort with any pressure to scrotum. Denies dysuria or hematuria. Denies chills, no fevers overnight. Voiding clear yellow No labs today Repeat Renal US reveals mottled appearance to left testicle with decreased flow compared to the right. Complex left-hydrocele, mildly increased. Review of Systems Review of Systems: All systems reviewed & are unremarkable except as noted in HPI & below Physical Exam Physical Exam: A&Ox3 RRR abd soft left inguinal incision well approximated, CDI left inguinal canal/groin firm, tender left scrotum tender, firm. no cellulitis, no increased warmth urine - clear yellow Results & Data Vital Signs (Past 12 Hours) Vital Signs Temp Pulse Resp BP Pulse Ox 01/18/19 07:02 62 18 110/63 97 01/17/19 23:25 36.6 C 71 16 113/71 97 Laboratory Results Laboratory Results - last 48 hr 01/16/19 01/16/19 01/16/19 15:40 15:40 22:14 WBC 10.89 H RBC 4.31 L Hgb 13.7 L Hct 39.3 L MCV 91.2 MCH 31.8 MCHC 34.9 RDW Std Deviation 43.3 RDW Coeff of Molly 13.0 Plt Count 228 MPV 10.8 H Immature Gran % (Auto) 0.2 Neut % (Auto) 75.1 Lymph % (Auto) 14.0 [place] % (Auto) 9.3 Eos % (Auto) 1.1 Baso % (Auto) 0.3 Immature Gran # (Auto) 0.02 Neut # (Auto) 8.18 H Lymph # (Auto) 1.53 [place] # (Auto) 1.01 H Eos # (Auto) 0.12 Baso # (Auto) 0.03 Sodium 134 L Potassium 4.1 Chloride 97 L Carbon Dioxide 29 Anion Gap 8.0 BUN 9 Creatinine 0.86 Est Cr Clr Drug Dosing 119.8 Est GFR ( Amer) 123.1 Est GFR (Non-Af Amer) 106.2 BUN/Creatinine Ratio 10.2 Glucose 245 H POC Glucose 240 H Calcium 8.9 Total Bilirubin 0.7 AST 11 L ALT 15 Alkaline Phosphatase 88 Total Protein 7.8 Albumin 3.6 Globulin 4.2 H Albumin/Globulin Ratio 0.9 Lipase 66 L Urine Color Urine Appearance Urine pH Ur Specific [place] Urine Protein Urine Glucose (UA) Urine Ketones Urine Blood Urine Nitrite Urine Bilirubin Urine Urobilinogen Ur Leukocyte Esterase Nasal Screen MRSA (PCR) 01/16/19 01/16/19 01/17/19 22:35 22:50 05:48 WBC RBC Hgb Hct MCV MCH MCHC RDW Std Deviation RDW Coeff of Molly Plt Count MPV Immature Gran % (Auto) Neut % (Auto) Lymph % (Auto) [place] % (Auto) Eos % (Auto) Baso % (Auto) Immature Gran # (Auto) Neut # (Auto) Lymph # (Auto) [place] # (Auto) Eos # (Auto) Baso # (Auto) Sodium Potassium Chloride Carbon Dioxide Anion Gap BUN Creatinine Est Cr Clr Drug Dosing Est GFR ( Amer) Est GFR (Non-Af Amer) BUN/Creatinine Ratio Glucose POC Glucose 64 L* Calcium Total Bilirubin AST ALT Alkaline Phosphatase Total Protein Albumin Globulin Albumin/Globulin Ratio Lipase Urine Color Yellow Urine Appearance Clear Urine pH 5.0 Ur Specific [place] > 1.045 H Urine Protein Negative Urine Glucose (UA) 3+ H Urine Ketones 3+ H Urine Blood Negative Urine Nitrite Negative Urine Bilirubin Negative Urine Urobilinogen Negative Ur Leukocyte Esterase Negative Nasal Screen MRSA (PCR) Negative 01/17/19 01/17/19 01/17/19 06:12 06:12 06:17 WBC 10.97 H RBC 4.04 L Hgb 12.4 L Hct 37.2 L MCV 92.1 MCH 30.7 MCHC 33.3 RDW Std Deviation 44.0 RDW Coeff of Molly 13.1 Plt Count 215 MPV 10.8 H Immature Gran % (Auto) 0.2 Neut % (Auto) 61.7 Lymph % (Auto) 24.6 York % (Auto) 10.4 Eos % (Auto) 2.8 Baso % (Auto) 0.3 Immature Gran # (Auto) 0.02 Neut # (Auto) 6.77 H Lymph # (Auto) 2.70 York # (Auto) 1.14 H Eos # (Auto) 0.31 Baso # (Auto) 0.03 Sodium 138 Potassium 3.7 Chloride 102 Carbon Dioxide 30 Anion Gap 7.0 BUN 11 Creatinine 0.81 Est Cr Clr Drug Dosing 127.2 Est GFR ( Amer) 126.2 Est GFR (Non-Af Amer) 108.9 BUN/Creatinine Ratio 14.1 Glucose 123 H POC Glucose 122 H Calcium 8.8 Total Bilirubin AST ALT Alkaline Phosphatase Total Protein Albumin Globulin Albumin/Globulin Ratio Lipase Urine Color Urine Appearance Urine pH Ur Specific [place] Urine Protein Urine Glucose (UA) Urine Ketones Urine Blood Urine Nitrite Urine Bilirubin Urine Urobilinogen Ur Leukocyte Esterase Nasal Screen MRSA (PCR) 01/17/19 01/17/19 01/17/19 08:46 12:04 17:09 WBC RBC Hgb Hct MCV MCH MCHC RDW Std Deviation RDW Coeff of Molly Plt Count MPV Immature Gran % (Auto) Neut % (Auto) Lymph % (Auto) [place] % (Auto) Eos % (Auto) Baso % (Auto) Immature Gran # (Auto) Neut # (Auto) Lymph # (Auto) [place] # (Auto) Eos # (Auto) Baso # (Auto) Sodium Potassium Chloride Carbon Dioxide Anion Gap BUN Creatinine Est Cr Clr Drug Dosing Est GFR ( Amer) Est GFR (Non-Af Amer) BUN/Creatinine Ratio Glucose POC Glucose 80 196 H 98 Calcium Total Bilirubin AST ALT Alkaline Phosphatase Total Protein Albumin Globulin Albumin/Globulin Ratio Lipase Urine Color Urine Appearance Urine pH Ur Specific [place] Urine Protein Urine Glucose (UA) Urine Ketones Urine Blood Urine Nitrite Urine Bilirubin Urine Urobilinogen Ur Leukocyte Esterase Nasal Screen MRSA (PCR) 01/17/19 01/18/19 01/18/19 20:27 02:33 05:50 WBC RBC Hgb Hct MCV MCH MCHC RDW Std Deviation RDW Coeff of Molly Plt Count MPV Immature Gran % (Auto) Neut % (Auto) Lymph % (Auto) [place] % (Auto) Eos % (Auto) Baso % (Auto) Immature Gran # (Auto) Neut # (Auto) Lymph # (Auto) [place] # (Auto) Eos # (Auto) Baso # (Auto) Sodium Potassium Chloride Carbon Dioxide Anion Gap BUN Creatinine Est Cr Clr Drug Dosing Est GFR ( Amer) Est GFR (Non-Af Amer) BUN/Creatinine Ratio Glucose POC Glucose 80 80 121 H Calcium Total Bilirubin AST ALT Alkaline Phosphatase Total Protein Albumin Globulin Albumin/Globulin Ratio Lipase Urine Color Urine Appearance Urine pH Ur Specific [place] Urine Protein Urine Glucose (UA) Urine Ketones Urine Blood Urine Nitrite Urine Bilirubin Urine Urobilinogen Ur Leukocyte Esterase Nasal Screen MRSA (PCR)
[2019-01-18] MEDS: PIPERACILLIN/TAZOBACTAM 3.375 GM in DEXTROSE 5% 100 ML IV SCH ×3 (07:56→23:41)
--- NOTE | 2019-01-18 13:15 | Surgery Consultation ---
Date of Consultation January 18, 2019 Assessment & Plan (1) Left hydrocele: I have had the opportunity to evaluate the patient at least 3 time over the past 5 days. He underwent left inguinal hernia repair [facility]ad 3 to 4-week prior to this. He is showing signs of healing in his left inguinal area with less induration and tenderness. He has no evidence of recurrent hernia, hematoma, seroma the inguinal area. The reason to reoperate would be hematoma and/or infected seroma of which he has neither. Reoperation likely cause worsening testicular ischemia, leading/hematoma and nerve injury. From the standpoint inguinal exploration I only see worsening problems. Therefore Will not pursue any surgical intervention area. History of Present Illness Attending Physician: Earnest Cade MD History of Present Illness Asked to see the patient for evaluation status post left inguinal hernia repair with scrotal edema and hydrocele. See assessment and plan Allergies Allergy/AdvReac Type Severity Reaction Status Date / Time iodine Allergy Severe Unknown Verified 01/16/19 15:25 shellfish derived Allergy Severe Unknown Verified 01/16/19 15:25 penicillin G Allergy Unknown Verified 01/17/19 03:34 Home Medications Home Medications Medication Instructions Recorded Confirmed Type aspirin [Aspir-81] 81 mg PO DAILY 01/13/19 01/16/19 History atorvastatin 40 mg PO HS 01/13/19 01/16/19 History fluoxetine 20 mg PO HS 01/13/19 01/16/19 History insulin glargine [Lantus Solostar 30 unit SUBCUT .DAILY AT 1630 01/13/19 01/16/19 History U-100 Insulin] insulin regular human [Humulin R 1 sliding scale dose SUBCUT 01/13/19 01/16/19 History Regular U-100 Insuln] USEASDIRECTD levetiracetam 250 mg PO HS 01/13/19 01/16/19 History lisinopril 5 mg PO DAILY 01/13/19 01/16/19 History trazodone 50 mg PO HS 01/13/19 01/16/19 History ibuprofen 600 mg PO TID PRN 01/16/19 01/16/19 History Patient History Medical History Hydrocele in adult Epilepsy Hyperlipidemia Hypertension Type 1 diabetes Surgical History Status post left inguinal herniorrhaphy Family History Other No pertinent family history in first degree relatives Social History Preferred Language: Lao Communication Ability: Effective Guest Request Runner Required: No Beliefs That Will Affect Care: None marital status: Single Current Living Situation: Other Current Living Situation Comment: [facility] current occupational status: employed Feels Safe at Home: Yes Smoking Status: Never smoker Do You Dip or Chew Tobacco: No Second Hand Exposure: No Hx Alcohol Use: No Hx Substance Use: No Results & Data Vital Signs (Past 12 Hours) Vital Signs Pulse Resp BP Pulse Ox 01/18/19 07:02 62 18 110/63 97
--- NOTE | 2019-01-18 13:20 | Hospitalist Progress Note ---
Date of Service January 18, 2019 Assessment & Plan (1) Left groin pain: Concern for testicular torsion vs infected hydorcele vs normal postoperative changes. Patient is in considerable pain. - Urology consulted - No emergent operative need. Repeat scrotal doppler showed continued compromised flow to the left testis. Uro feels this is likely a complication of his prior hernia repair at [facility]. Discussed with urology today. - Pain control - Continue Zosyn (2) Hernia, inguinal, left: S/p repair at [facility]. CT a/p on 01/16 showed normal post-operative changes. Patient was evaluated by Dr. Odonnell in ER. - No operative needs at this time, though will reassess need daily - Continue pain control and bowel regimen (3) Left hydrocele: As above. (4) Diabetes: Patient with insulin dependent DM. - Continue Lantus 30u qHS - Sliding scale insulin - Glycemic consult (5) Hypertension: Blood pressure well controlled at present. - Holding lisinopril for now - Continue to monitor (6) Dyslipidemia: Chronic. - Continue Atorvastatin (7) Epilepsy: Chronic. - Continue Keppra (8) DVT prophylaxis: SCDs - Low DVT risk per admission calculator & possible surgery Subjective Reports worsening pain in the inguinal area. Review of Systems Review of Systems: All systems reviewed & are unremarkable except as noted in HPI & below Physical Exam Constitutional: well developed and well nourished; no acute distress and not ill appearing Eyes: eyes not dysmorphic ENMT: Ears: no hearing impairment Nose: no external nose abnormality Neck: normal visual inspection and trachea midline; no tracheal deviation Respiratory: normal respiratory effort; no respiratory distress and no labored breathing Cardiovascular: Rate/Rhythm: not tachycardic Gastrointestinal (Abdomen): Percussion/Palpation: abdomen soft; no guarding and abdomen not rigid Musculoskeletal: Spine: normal cervical ROM Extremities: full ROM of extremities Skin: no rashes and no lesions Neurologic: CN's II-XI intact bilaterally Speech / Cognition: normal speech Motor/Sensory: no tremor Psychiatric: Orientation: alert and oriented x 3 Affect: + flat affect Genitourinary: + scrotum abnormality, + hydrocele and + testicular swelling Lymphatic: no lymphadenopathy Results & Data Vital Signs (Past 12 Hours) Vital Signs Pulse Resp BP Pulse Ox 01/18/19 07:02 62 18 110/63 97 PG Care Time/CCT Total # of Minutes Spent Total Time Spent with Patient: Total time spent is greater than 50% in coordination of care (as documented) at patient's floor/unit and/or counseling patient: (1) Diabetes Diabetes mellitus type: type 1 Diabetes mellitus complication status: without complication Qualified Code(s): E10.9 - Type 1 diabetes mellitus without complications (2) Hypertension Hypertension type: essential hypertension Qualified Code(s): I10 - Essential (primary) hypertension (3) Epilepsy Epilepsy type: unspecified
[2019-01-18] MEDS: INSULIN GLARGINE SOLOSTAR 100 UNITS/ML 3 ML PEN SQ SCH (17:38)
[2019-01-18] MEDS: ATORVASTATIN 40 MG TAB PO SCH (20:37)
[2019-01-18] MEDS: TRAZODONE HCL 50 MG TAB PO SCH (20:37)
[2019-01-18] MEDS: levETIRAcetam 250 MG TAB PO SCH (20:37)
[2019-01-18] MEDS: FLUOXETINE HCL 20 MG CAP PO SCH (20:37)
[2019-01-19] MEDS: HYDROmorphone INJ 1 MG/ML SYRINGE IV PRN ×5 (02:18→20:08)
[2019-01-19 06:52] LABS: Hematocrit (blood only) 35.4 % (42-52); Mean Corpuscular Hgb Conc 33.9 g/dL (32-36); Mean Corpuscular Volume 89.8 fL (80-100); Mean Platelet Volume 10.5 fL (7.4-10.4); Platelet Count 255 K/uL (130-400); RDW Coefficient of Variation 12.9 % (11.5-14.5); RDW Standard Deviation 42.5 fL (36.4-46.3); Red Blood Count 3.94 M/uL (4.7-6.1); White Blood Count 10.76 K/uL (4.8-10.8)
[2019-01-19] MEDS: OXYCODONE HCL IR 5 MG TAB (IMMEDIATE RELEASE) PO PRN ×3 (08:06→18:41)
[2019-01-19] MEDS: INSULIN ASPART 100 UNITS/ML 3 ML PEN SC SCH ×4 (09:04→22:02)
[2019-01-19] MEDS: DOCUSATE SODIUM 100 MG CAP PO PRN (09:16)
--- NOTE | 2019-01-19 10:34 | Urology Progress Note ---
Date of Service January 19, 2019 Assessment & Plan (1) Hernia, inguinal, left: (2) Left groin pain: (3) Left hydrocele: 43yo M inmate from [facility] with Left hematoma/hydrocele s/p Left inguinal hernia repair on 12/16/18, performed at [facility]. Appreciate general surgery's recommendations. Clinical exam essentially unchanged. Pt is very motivated for intervention at this point. Findings reviewed with Dr. Singh and Dr. Cade. Given his persistent pain requiring IV pain control ATC in the context of a complex left sided hematoma/hydrocele, possible decreased bloodflow to left testicle, will proceed with scrotal exploration, left sided hematoma evacuation, possible orchiectomy, possible drain placement . Risks and benefits to be reviewed with patient by Dr. Love tomorrow. OR notified. Preoperative CXR and EKG completed. Will cover with IV ancef preoperatively. Pt agreeable to plan of care. All questions answered. NPO at MI. Subjective 43yo M inmate from [facility] with Left hematoma/hydrocele s/p Left inguinal hernia repair on 12/16/18, performed at [facility]. Utilizing ice more consistently today. Remains uncomfortable, utilizing PRN medications ATC. Denies dysuria or hematuria. Denies chills, no fevers overnight. Tolerating PO diet. Denies nausea/vomiting. Review of Systems Review of Systems: All systems reviewed & are unremarkable except as noted in HPI & below Physical Exam Physical Exam: A&Ox3 RRR abd soft, nontender left inguinal canal remains firm, tender. Non-erythematous, no increased warmth, no cellulitis. left hemscrotum of similar size and firmness from yesterdays assessment. No increased warmth, no cellulitis. Results & Data Vital Signs (Past 12 Hours) Vital Signs Temp Pulse Resp BP Pulse Ox 01/19/19 06:55 37.0 C 73 20 109/61 94 01/18/19 23:00 37.4 C 81 16 101/60 97 Laboratory Results Laboratory Results - last 48 hr 01/17/19 01/17/19 01/18/19 17:09 20:27 02:33 WBC RBC Hgb Hct MCV MCH MCHC RDW Std Deviation RDW Coeff of Molly Plt Count MPV POC Glucose 98 80 80 01/18/19 01/18/19 01/18/19 05:50 09:50 10:54 WBC RBC Hgb Hct MCV MCH MCHC RDW Std Deviation RDW Coeff of Molly Plt Count MPV POC Glucose 121 H 71 90 01/18/19 01/18/19 01/18/19 11:58 17:37 19:31 WBC RBC Hgb Hct MCV MCH MCHC RDW Std Deviation RDW Coeff of Molly Plt Count MPV POC Glucose 88 324 H* 226 H 01/18/19 01/19/19 01/19/19 20:26 06:26 06:30 WBC 10.76 RBC 3.94 L Hgb 12.0 L Hct 35.4 L MCV 89.8 MCH 30.5 MCHC 33.9 RDW Std Deviation 42.5 RDW Coeff of Molly 12.9 Plt Count 255 MPV 10.5 H POC Glucose 113 H 83 01/19/19 01/19/19 08:08 11:52 WBC RBC Hgb Hct MCV MCH MCHC RDW Std Deviation RDW Coeff of Molly Plt Count MPV POC Glucose 150 H 182 H
--- NOTE | 2019-01-19 13:09 | Hospitalist Progress Note ---
Date of Service January 19, 2019 Assessment & Plan (1) Left groin pain: Concern for vascular compromise with compression of the testicular vascular. Lower concern for infection. - Urology consulted - No urologic operative need. Repeat scrotal Doppler showed continued compromised flow to the left testis. Uro feels this is likely a complication of his prior hernia repair at [facility]. Discussed with urology today. - Gen surg revisited the patient on 01/19 with continued thought that it is not a general surgery issue. - Pain control - Surgical services do not feel there is infection, so currently holding abx (2) Hernia, inguinal, left: S/p repair at [facility]. CT a/p on 01/16 showed normal post-operative changes. Patient was evaluated by Dr. Odonnell in ER. - No operative needs at this time, though will reassess need daily - Continue pain control and bowel regimen (3) Left hydrocele: As above. (4) Diabetes: Patient with insulin dependent DM. - Continue Lantus 30u qHS - Sliding scale insulin - Glycemic consult (5) Hypertension: Blood pressure well controlled at present. - Holding lisinopril for now - Continue to monitor (6) Dyslipidemia: Chronic. - Continue atorvastatin (7) Epilepsy: Chronic. - Continue Keppra (8) DVT prophylaxis: SCDs - Low DVT risk per admission calculator & possible surgery Subjective Reports continued, worsening pain. He feels swelling is worse. Review of Systems Review of Systems: All systems reviewed & are unremarkable except as noted in HPI & below Physical Exam Constitutional: well developed and well nourished; no acute distress and not ill appearing Eyes: eyes not dysmorphic ENMT: Ears: no hearing impairment Nose: no external nose abnormality Neck: normal visual inspection and trachea midline; no tracheal deviation Respiratory: normal respiratory effort; no respiratory distress and no labored breathing Cardiovascular: Rate/Rhythm: not tachycardic Gastrointestinal (Abdomen): Percussion/Palpation: abdomen soft; no guarding and abdomen not rigid Musculoskeletal: Spine: normal cervical ROM Extremities: full ROM of extremities Skin: no rashes and no lesions Neurologic: CN's II-XI intact bilaterally Speech / Cognition: normal speech Motor/Sensory: no tremor Psychiatric: Orientation: alert and oriented x 3 Affect: + flat affect Genitourinary: + scrotum abnormality, + hydrocele and + testicular swelling Lymphatic: no lymphadenopathy Results & Data Vital Signs (Past 12 Hours) Vital Signs Temp Pulse Resp BP Pulse Ox 01/19/19 06:55 37.0 C 73 20 109/61 94 PG Care Time/CCT Total # of Minutes Spent Total Time Spent with Patient: Total time spent is greater than 50% in coordination of care (as documented) at patient's floor/unit and/or counseling patient: (1) Diabetes Diabetes mellitus type: type 1 Diabetes mellitus complication status: without complication Qualified Code(s): E10.9 - Type 1 diabetes mellitus without compli cations (2) Hypertension Hypertension type: essential hypertension Qualified Code(s): I10 - Essential (primary) hypertension (3) Epilepsy Epilepsy type: unspecified
[2019-01-19] MEDS: POLYETHYLENE (MIRALAX) 17 GM PACK PO PRN (13:41)
--- NOTE | 2019-01-19 14:14 | XRay Report ---
TWO VIEW CHEST CLINICAL HISTORY: Preoperative examination. FINDINGS: PA and lateral chest radiographs are obtained. No prior studies are available for compariso n at the time of dictation. The cardiomediastinal silhouette is unremarkable. The lungs and pleura l spaces are clear. There is no pneumothorax. The bony thorax appears intact. IMPRESSION: No active disease in the chest. Electronically signed by: Francis Moreno M.D. 01/19/2019 2:13 PM
[2019-01-19] MEDS ORDERED: PHARMACY GLYCEMIC MGMT CONSULT PRN (15:12)
--- NOTE | 2019-01-19 15:27 | Pharmacy Report ---
Glycemic Control Consultation - Date of Service January 19, 2019 - Scope Scope: Glycemic Pharmacist consulted by Dr Cade on 01/19 for glycemic control and to write orders per [facility] inpatient glycemic control protocol - Objective Weight: 76.5 kg Accuchecks BSG (last 24hrs): 01/18/19 01/18/19 01/18/19 17:37 19:31 20:26 POC Glucose 324 H* 226 H 113 H 01/19/19 01/19/19 01/19/19 06:26 08:08 11:52 POC Glucose 83 150 H 182 H - Recent Pertinent Medications Outpatient Anti-diabetic Regimen: * Lantus 30 units @1630; Regular sliding scale * A1c = pending The patient is currently receiving: * Basal insulin: Lantus 30 units every 24 hours * Correctional Insulin: Novolog Correction per scale ACHS Goal Range: Low 80 mg/dL - High 140 mg/dL Correction Factor: 25 mg/dL/unit * Prandial insulin: Per carb ratio of 1 unit per 7 grams CHO consumed * Oral Agents: Risk Factors for Insulin Resistance: * Infection: previously on zosyn * Recent Surgery: POD #1; plan for ERCP tomorrow * Diet: T1DM - Assessment & Plan Assessment & Plan: ASSESSMENT: * Patient is an incarcerated individual with type 1 diabetes/hyperlipidemia/epilepsy who presented with worsening groin pain with testicular swelling, reports of fever, hematuria. Patient underwent left inguinal hernia repair at [facility] 3 to 4-week prior. Was evaluated by general surgery and urology. Patient to undergo scrotal exploration, left sided hematoma evacuation, possible orchiectomy, possible drain placement tomorrow and therefore will be NPO after midnight * BSGs have been reasonably controlled with the exception of dinner BSG (324) * Fasting BSGs have been in the low 80s and NPO status tomorrow, will decrease lantus dose by 15% * Will continue current novolog parameters as patient has corrected well with these parameters (patient does have some high carbohydrate meals) PLAN FOR INPATIENT GLYCEMIC CONTROL: * decreasing Lantus 26 units SQ today * Continuing correction factor to 25 mg/dl/unit * Continuing carb ratio to 1 unit per 7 grams CHO consumed * Changing goal range to Low 110 mg/dL - High 140 mg/dL * Please note that the plan above was derived based on current level of insulin resistance and hospital stress. These recommendations are appropriate for inpatient admission only. Plan of care upon discharge will need to be reassessed to avoid potential outpatient hypo/hyperglycemia. Thank you.
[2019-01-19] MEDS ORDERED: INSULIN GLARGINE SOLOSTAR 100 UNITS/ML 3 ML PEN SQ SCH (16:30)
[2019-01-19] MEDS: FLUOXETINE HCL 20 MG CAP PO SCH (20:11)
[2019-01-19] MEDS: TRAZODONE HCL 50 MG TAB PO SCH (20:11)
[2019-01-19] MEDS: levETIRAcetam 250 MG TAB PO SCH (20:11)
[2019-01-19] MEDS: ATORVASTATIN 40 MG TAB PO SCH (20:11)
[2019-01-20] MEDS: HYDROmorphone INJ 1 MG/ML SYRINGE IV PRN ×4 (00:09→20:14)
[2019-01-20] MEDS ORDERED: Nursing to Pharmacy Communication ONE (01:31)
[2019-01-20] MEDS: OXYCODONE HCL IR 5 MG TAB (IMMEDIATE RELEASE) PO PRN ×5 (03:30→23:14)
[2019-01-20] MEDS ORDERED: CEFAZOLIN 2000MG 2,000 MG/15 ML SYR IV SCH (06:00)
[2019-01-20] MEDS: INSULIN ASPART 100 UNITS/ML 3 ML PEN SC SCH ×4 (06:25→20:47)
[2019-01-20 07:42] LABS: Hemoglobin 11.8 g/dL (14.0-18.0); Mean Corpuscular Hgb Conc 33.7 g/dL (32-36); Mean Corpuscular Volume 90.9 fL (80-100); Mean Platelet Volume 10.3 fL (7.4-10.4); Platelet Count 274 K/uL (130-400); RDW Standard Deviation 43.2 fL (36.4-46.3); Red Blood Count 3.85 M/uL (4.7-6.1); White Blood Count 10.33 K/uL (4.8-10.8)
[2019-01-20 07:43] LABS: Estimated Average Glucose 301 mg/dl; Hemoglobin A1C 12.1 % (4.5-5.6)
--- NOTE | 2019-01-20 08:07 | Anesthesiology Consultation ---
Date of Service January 20, 2019 Assessment & Plan (1) Encounter for pre-operative examination: Chart Review Chart Review: Acceptable Risk for Surgery Consults Requested none ASA ASA3 Proposed Anesthesia Anesthesia Type: General Risk / Benefits Reviewed With: PT / POA / Parent / Guardian, Accepts Plan and Informed Consent Obtained History Surgery Operation Date: 01/20/19 09:55 Proposed Procedures p Scrotal Exploration, Hematoma Evacuation, Possible Left Orchiectomy - Elmer Cade MD Height/Weight Height: 6 ft 2 in Weight: 76.5 kg Allergies Allergy/AdvReac Type Severity Reaction Status Date / Time iodine Allergy Severe Unknown Verified 01/16/19 15:25 shellfish derived Allergy Severe Unknown Verified 01/16/19 15:25 penicillin G Allergy Unknown Verified 01/17/19 03:34 Medications Home Medications Medication Instructions Recorded Confirmed Last Taken aspirin [Aspir-81] 81 mg PO DAILY 01/13/19 01/16/19 01/14/19 atorvastatin 40 mg PO HS 01/13/19 01/16/19 Unknown fluoxetine 20 mg PO HS 01/13/19 01/16/19 01/15/19 insulin glargine [Lantus Solostar 30 unit SUBCUT .DAILY AT 1630 01/13/19 01/16/19 01/15/19 U-100 Insulin] insulin regular human [Humulin R 1 sliding scale dose SUBCUT 01/13/19 01/16/19 01/16/19 07:00 Regular U-100 Insuln] USEASDIRECTD levetiracetam 250 mg PO HS 01/13/19 01/16/19 01/15/19 lisinopril 5 mg PO DAILY 01/13/19 01/16/19 01/14/19 trazodone 50 mg PO HS 01/13/19 01/16/19 01/15/19 ibuprofen 600 mg PO TID PRN 01/16/19 01/16/19 01/14/19 Active Medications Generic Name Dose Route Start Last Admin Trade Name Freq PRN Reason Stop Dose Admin Atorvastatin Calcium 40 mg 01/16/19 21:45 01/19/19 20:11 Lipitor PO 02/15/19 21:44 40 mg HS VERA Administration Dextrose 25 - 50 ml 01/16/19 21:16 01/17/19 05:59 Dextrose 50% IV 02/15/19 21:15 25 ml UD PRN Administration Hypoglycemia Protocol Protocol Docusate Sodium 100 mg 01/16/19 21:16 01/19/19 09:16 Colace PO 02/15/19 21:15 100 mg BID PRN Administration Constipation Fluoxetine HCl 20 mg 01/16/19 21:45 01/19/19 20:11 Prozac PO 02/15/19 21:44 20 mg HS VERA Administration Hydromorphone HCl 1 mg 01/16/19 21:16 01/20/19 04:35 Dilaudid IV 01/30/19 21:15 1 mg Q4H PRN Administration Pain Insulin Aspart 0 units 01/20/19 06:00 01/20/19 06:25 Novolog Flexpen SC 02/19/19 05:59 2 units Q6 VERA Administration Insulin Glargine 26 units 01/19/19 16:30 01/19/19 17:23 Lantus Solostar Pen SQ 02/18/19 16:29 26 units DAILY@1630 VERA Administration Levetiracetam 250 mg 01/16/19 21:45 01/19/19 20:11 Keppra PO 02/15/19 21:44 250 mg HS VERA Administration Oxycodone HCl 5 mg 01/17/19 13:39 01/20/19 07:35 Roxicodone Immediate Rel PO 01/31/19 13:38 5 mg Q4HWA PRN Administration Pain Polyethylene Glycol 17 gm 01/16/19 21:16 01/19/19 13:41 Miralax Powder Packet PO 02/15/19 21:15 17 gm DAILY PRN Administration Constipation Trazodone HCl 50 mg 01/16/19 21:45 01/19/19 20:11 Desyrel PO 02/15/19 21:44 50 mg HS VERA Administration NPO Date Last Intake of Fluids: 01/20/19 Time Last Intake of Fluids: 00:00 Date Last Intake of Solids: 01/20/19 Time Last Intake of Solids: 00:00 Past Medical History Medical History Hydrocele in adult Epilepsy Hyperlipidemia Hypertension Type 1 diabetes Exercise / Class Metabolic Activity II 4-5 Yardwork/Stairs/Walk up hill Past Family History Family History Other No pertinent family history in first degree relatives Past Surgical History Surgical History Status post left inguinal herniorrhaphy Past Anesthesia History No Hx of Anesthesia Complications and No Family Hx of Anesthesia Complications History of PONV No Hx of PONV and No Hx of Motion Sickness Social History Smoking Status: Never smoker Do You Dip or Chew Tobacco: No Hx Alcohol Use: No Hx Substance Use: No Physical Exam Vital Signs Last Vital Signs Temp 99.1 F 01/20/19 07:15 Pulse 62 01/20/19 07:15 Resp 16 01/20/19 07:15 BP 107/67 01/20/19 07:15 Pulse Ox 97 01/20/19 07:15 ENMT Mouth: + edentulous Thyromental Distance: > or= 3.5 Finger Breadths Mallampati Class: II Neck normal visual inspection Respiratory normal respiratory effort Auscultation: lungs clear to auscultation bilaterally Cardiovascular Rate/Rhythm: regular rate and regular rhythm Testing Laboratory Results 01/20/19 07:05 01/17/19 06:12 Hemoglobin A1c 12.1 % (4.5-5.6) H 01/20/19 07:05 Urine Color Yellow 01/16/19 22:50 Urine Appearance Clear (Clear) 01/16/19 22:50 Urine pH 5.0 (4.5-7.5) 01/16/19 22:50 Ur Specific [place] > 1.045 (1.000-1.030) H 01/16/19 22:50 Urine Protein Negative (Negative) 01/16/19 22:50 Urine Glucose (UA) 3+ (Negative) H 01/16/19 22:50 Urine Ketones 3+ (Negative) H 01/16/19 22:50 Urine Nitrite Negative (Negative) 01/16/19 22:50 Ur Leukocyte Esterase Negative (Negative) 01/16/19 22:50 01/20/19 01/20/19 09:10 06:11 POC Glucose Pending 185 H Electrocardiogram Date: 01/16/19 Normal sinus rhythm, rate 72 bpm Normal ECG No previous ECGs available Confirmed by Jt Panchal ([id number]) on 01/17/2019 11:55:09 AM Chest X-Ray Date: 01/19/19 Findings: + NAD
[2019-01-20] MEDS ORDERED: fentaNYL citrate 100 MCG/2 ML VIAL IV PRN (08:55)
[2019-01-20] MEDS ORDERED: ONDANSETRON INJ 2 MG/ML 2 ML VIAL IV PRN (08:55)
[2019-01-20] MEDS ORDERED: ATROPINE SULFATE 0.1 MG/ML 10ML SYR IV PRN (08:55)
[2019-01-20] MEDS ORDERED: ePHEDrine sulfate 50 MG/ML AMP IV PRN (08:55)
[2019-01-20] MEDS ORDERED: LIDOCAINE HCL 2% 2 ML VIAL/AMP(20MG/ML) INFIL ONE (09:13)
[2019-01-20] MEDS ORDERED: fentaNYL citrate 100 MCG/2 ML VIAL ONE (09:13)
[2019-01-20] MEDS ORDERED: ONDANSETRON INJ 2 MG/ML 2 ML VIAL ONE (09:13)
[2019-01-20] MEDS ORDERED: MIDAZOLAM HCL 1 MG/ML 2ML VIAL ONE (09:13)
[2019-01-20] MEDS ORDERED: PROPOFOL IV EMULSION 10 MG/ML 20 ML VIAL IV ONE (09:13)
--- NOTE | 2019-01-20 09:14 | History & Physical Bridge Note ---
Date of Service January 20, 2019 History & Physical Bridge Note I have examined the patient, reviewed the History & Physical and in the interval since the performance of the History & Physical I have noted the following changes of clinical significance: consent reviewed, will proceed as planned. LLOYD
[2019-01-20] MEDS ORDERED: CLINDAMYCIN 900 MG in DEXTROSE 5% 100 ML IV SCH (10:15)
[2019-01-20] MEDS ORDERED: CLINDAMYCIN PHOS 300 MG/2 ML VIAL ONE (10:28)
[2019-01-20] MEDS: BUPIVACAINE 0.5 % 5 MG/1 ML MPF 30ML VIAL ONE ×2 (10:30→12:14)
[2019-01-20] MEDS: BACITRACIN OINT 15 GM TUBE ONE ×2 (10:45→12:14)
--- NOTE | 2019-01-20 10:47 | Operative Report ---
Post Operative Report Pre & Post Diagnosis Operation Date: 01/20/19 09:55 Pre-Op Diagnosis: left scrotal collection with intractable pain Procedure Operation Date: 01/20/19 09:55 Actual Procedures p Left Scrotal Exploration, Hematoma Evacuation of reactive hydrocele and hematoma of cord, excision of epidiymis left testis(Left) - Elmer Cade MD Surgeon Elmer Cade MD Guidance Counselor JEREMY HERNANDEZ Estimated Blood Loss 20 Findings Consistent with Post-Op Diagnosis Specimens Appendix testis Description of Procedure Left scrotal exploration, excision of left appendix testis, evacuation of reactive hydrocoele and hematoma of the cord, drain placement. I attest to the content of the Intraoperative Record and any orders documented therein. Any exceptions are noted below.
[2019-01-20] MEDS ORDERED: KETOROLAC 30 MG/ML VIAL ONE (11:14)
--- NOTE | 2019-01-20 11:56 | Anesthesiology Progress Note ---
Date of Service January 20, 2019 Anesthesia Post Procedure Vital Signs Vital Signs: Temp Pulse Pulse Resp BP Pulse Ox 01/20/19 11:35 97.9 F 68 18 114/65 93 01/20/19 11:25 68 12 130/83 93 01/20/19 11:15 73 12 119/69 96 01/20/19 11:05 84 14 137/82 98 01/20/19 10:59 97.2 F L 88 18 123/85 98 01/20/19 09:26 97.7 F 72 20 114/68 96 01/20/19 07:15 99.1 F 62 16 107/67 97 01/19/19 23:22 98.1 F 74 18 119/77 97 01/19/19 20:07 78 110/63 96 01/19/19 15:32 79 99/61 L 01/19/19 14:51 99.9 F H 104 H 16 91/54 L 96 Pain Intensity Testicles: Pain Intensity: 9 Scrotal: Pain Intensity: 5 Transfer of Care Handoff Completed per policy Notes Mental Status: alert / awake / arousable and participated in evaluation Patient Amnestic to Procedure: Yes Nausea / Vomiting: adequately controlled Pain: adequately controlled Airway Patency, RR, SpO2: stable & adequate BP & HR: stable & adequate Hydration State: stable & adequate Anesthetic Complications: no major complications apparent and Pt Satisfied with anesthetic care
[2019-01-20] MEDS: CEFAZOLIN 2000MG 2,000 MG/15 ML SYR IV SCH ×2 (13:27→20:14)
--- NOTE | 2019-01-20 13:41 | Hospitalist Progress Note ---
Date of Service January 20, 2019 Assessment & Plan (1) Left groin pain: Concern for vascular compromise with compression of the testicular vascular. Lower concern for infection. - Underwent Left Scrotal Exploration, Hematoma Evacuation of reactive hydrocele and hematoma of cord, excision of epidiymis left testis with Dr. Elmer Cade on 01/20 - Surgical services do not feel there is infection, so currently holding abx - Pain control - Drain removal per urology (2) Hernia, inguinal, left: S/p repair at [facility]. CT a/p on 01/16 showed normal post-operative changes. Patient was evaluated by Dr. Odonnell in ER. - Continue pain control and bowel regimen - See above (3) Left hydrocele: Now removed during surgery. - As above. (4) Diabetes: Patient with insulin dependent DM. - Continue Lantus 30u qHS - Sliding scale insulin - Glycemic consult (5) Hypertension: Blood pressure well controlled at present. - Holding lisinopril for now - Continue to monitor (6) Dyslipidemia: Chronic. - Continue atorvastatin (7) Epilepsy: Chronic. - Continue Keppra (8) DVT prophylaxis: SCDs - Low DVT risk per admission calculator Subjective In pain in the left testicle. Otherwise no complaints. Review of Systems Review of Systems: All systems reviewed & are unremarkable except as noted in HPI & below Physical Exam Constitutional: well developed and well nourished; no acute distress and not ill appearing Eyes: eyes not dysmorphic ENMT: Ears: no hearing impairment Nose: no external nose abnormality Neck: normal visual inspection and trachea midline; no tracheal deviation Respiratory: normal respiratory effort; no respiratory distress and no labored breathing Cardiovascular: Rate/Rhythm: not tachycardic Gastrointestinal (Abdomen): Percussion/Palpation: abdomen soft; no guarding and abdomen not rigid Musculoskeletal: Spine: normal cervical ROM Extremities: full ROM of extremities Skin: no rashes and no lesions Neurologic: CN's II-XI intact bilaterally Speech / Cognition: normal speech Motor/Sensory: no tremor Psychiatric: Orientation: alert and oriented x 3 Affect: + flat affect Genitourinary: + scrotum abnormality Drain present. Lymphatic: no lymphadenopathy Results & Data Vital Signs (Past 12 Hours) Vital Signs Temp Pulse Pulse Pulse Resp BP Pulse Ox 01/20/19 13:06 36.5 C 69 16 108/64 93 07/11/19 12:26 36.8 C 70 15 103/64 98 01/20/19 12:00 36.8 C 69 18 118/73 95 01/20/19 11:35 36.6 C 68 18 114/65 93 01/20/19 11:25 68 12 130/83 93 01/20/19 11:15 73 12 119/69 96 01/20/19 11:05 84 14 137/82 98 01/20/19 10:59 36.2 C L 88 18 123/85 98 01/20/19 09:26 36.5 C 72 20 114/68 96 01/20/19 07:15 37.3 C 62 16 107/67 97 PG Care Time/CCT Total # of Minutes Spent Total Time Spent with Patient: Total time spent is greater than 50% in coordination of care (as documented) at patient's floor/unit and/or counseling patient: (1) Diabetes Diabetes mellitus type: type 1 Diabetes mellitus complication status: without complication Qualified Code(s): E10.9 - Type 1 diabetes mellitus without complications (2) Hypertension Hypertension type: essential hypertension Qualified Code(s): I10 - Essential (primary) hypertension (3) Epilepsy Epilepsy type: unspecified
--- NOTE | 2019-01-20 16:38 | Operative Report ---
DATE OF OPERATION: 01/20/2019 PREOPERATIVE DIAGNOSES: Persistent left orchalgia with hydrocele and a suspected postoperative hematoma after a hernia repair. POSTOPERATIVE DIAGNOSES: Persistent left orchalgia with hydrocele and a suspected postoperative hematoma after a hernia repair. PROCEDURE: Left scrotal exploration with evacuation of hematoma and reactive hydrocele, excision of left appendix testis and drain placement. SURGEON: Elmer Cade MD. SYSTEM SUPPORT ANALYST: MARY Fofana. The bioinformatics assistant is present throughout the case for retraction, suction, assistance with suture ligation, patient positioning, and general patient safety. SPECIMENS SENT TO PATHOLOGY: Appendix testis. ESTIMATED BLOOD LOSS: 20 mL. DRAINS LEFT IN PLACE: Include a quarter-inch [place] drain via the dependent aspect of the scrotum. COMPLICATIONS: None. FINDINGS: [place] reactive hydrocele drained. Viable testis with a Doppler signal obtained as well as active bleeding from a small tunical incision made. Isolated hematoma of the cord drained. The majority of the patient's findings appear to be consistent with edematous and inflammatory compression of the cord, status post hernia repair. BRIEF HISTORY: Mr. Flowers is a 43-year-old inmate with a history of hernia repair at an outside facility approximately 6 weeks ago. He reports that 2 days after his surgery, he developed a left inguinal and scrotal swelling, which has persisted since with worsening pain and discomfort. Serial scrotal ultrasounds have demonstrated some diminished flow to the left testis with inflammatory fluid, possible blood around the testis. The patient's pain continues to be uncontrolled. He is therefore being brought to the operating room today for decompression of his scrotal findings. Consent is obtained from the patient preoperatively who vocalizes good understanding of the treatment plan. Risks and benefits reviewed. SCDs used for DVT prophylaxis and intravenous clindamycin is used for antibiotic coverage. Please see urology notes and consultation for further details. PROCEDURE DESCRIPTION: The patient was properly identified and brought into the operative suite after identification of appropriate consent on the chart. General anesthesia with laryngeal mask was initiated. The patient was prepped and draped in standard fashion for this procedure. spouter-out procedure was followed. A transverse superior scrotal incision was made and brought down through the skin and scrotal layers to the hydrocele sac on the left hand side. This was entered and clear hydrocele fluid was identified. Dusky testis was visualized with some patchy ischemia. However, overall viable tissue was felt to be present. The hydrocele sac was explored and drained with some small amount of blood being present in the superior aspect. A nodular thickening and enlargement of the cord was present in the superior fashion. This was able to be explored from the scrotal approach up into the canal. The majority of the swelling was felt to be edematous, but a pocket of old blood was identified more proximal in the cord as well. After this was drained and the cord had been dissected, no collections or other clear areas of unifocal thickening were noted to be present. Bleeding vessels were controlled using a suture ligature, 2-0 Vicryl ties or fulguration with a Bovie cautery as necessary. After this was complete, generous washout of the incision was made. An incision was made in the dependent scrotum and a quarter-inch [place] drain was passed behind the testicle and up into the inguinal canal from this incision. This was tacked in place using a 3-0 nylon suture. Again, generous irrigation of the wound and scrotum was performed. The appendix testis has been identified and removed using Bovie cautery. The small incision in the tunica was closed using a 3-0 Vicryl suture. Testis was returned to the scrotum without twists or turns of the cords. Incision was closed in 2 layers including 2-0 Vicryl interrupted sutures on the dartos fascia and 2-0 chromic interrupted vertical mattress sutures at the level of the skin. Bacitracin ointment was placed followed by scrotal support and fluffs. Anesthesia was reversed and patient was transferred to the recovery room in stable condition. FOLLOWUP CARE: The patient will be readmitted to the floor for standard management. We will monitor him for improvement of his pain. Any further discomfort would likely be due to a cord compression at the level of the hernia repair and will likely improve conservatively over the course of time. We will arrange for outpatient wound check as necessary. I attest to the content of the Intraoperative Record and any orders documented therein. Any exception s are noted below.
[2019-01-20] MEDS: INSULIN GLARGINE SOLOSTAR 100 UNITS/ML 3 ML PEN SQ SCH (18:17)
[2019-01-20] MEDS: ACETAMINOPHEN 325 MG TAB PO PRN (20:14)
[2019-01-20] MEDS: TRAZODONE HCL 50 MG TAB PO SCH (20:15)
[2019-01-20] MEDS: levETIRAcetam 250 MG TAB PO SCH (20:15)
[2019-01-20] MEDS: ATORVASTATIN 40 MG TAB PO SCH (20:15)
[2019-01-20] MEDS: FLUOXETINE HCL 20 MG CAP PO SCH (20:15)
[2019-01-21] MEDS: HYDROmorphone INJ 1 MG/ML SYRINGE IV PRN ×4 (02:56→20:31)
[2019-01-21] MEDS: ACETAMINOPHEN 325 MG TAB PO PRN ×2 (02:57→07:34)
--- NOTE | 2019-01-21 05:03 | Progress Note ---
Date of Service January 21, 2019 Received page from patient's nurse overnight that the patient has been persistently febrile since his surgery earlier in the day. No noted uncontrolled pain or tachycardia. Discussed case with Dr. Nunez. Debated starting antibiotics in this immediate post-operative period. Prior progress note mentions low concern for infection pre-op. - Decided to order blood and urine cultures. Routine AM labs (CBC & BMP) pending. - Defer need for antibiotics to primary and surgical teams. Renata Kasper, PGY3 Overnight call Results & Data Vital Signs (Past 12 Hours) Vital Signs Temp Pulse Resp BP Pulse Ox 01/21/19 03:59 38.3 C H 85 17 107/63 91 01/21/19 02:56 37.8 C H 01/21/19 00:21 37.9 C H 01/20/19 23:05 38.1 C H 82 18 102/63 94 01/20/19 21:25 37.5 C 01/20/19 20:07 38.8 C H 97 H 18 113/63 97
[2019-01-21] MEDS: OXYCODONE HCL IR 5 MG TAB (IMMEDIATE RELEASE) PO PRN ×2 (06:00→13:55)
[2019-01-21 06:10] LABS: Hematocrit (blood only) 35.3 % (42-52); Hemoglobin 11.8 g/dL (14.0-18.0); Mean Corpuscular Hgb Conc 33.4 g/dL (32-36); Mean Corpuscular Volume 92.2 fL (80-100); Mean Platelet Volume 9.8 fL (7.4-10.4); Platelet Count 319 K/uL (130-400); RDW Coefficient of Variation 12.8 % (11.5-14.5); RDW Standard Deviation 43.4 fL (36.4-46.3); Red Blood Count 3.83 M/uL (4.7-6.1); White Blood Count 14.72 K/uL (4.8-10.8)
[2019-01-21 06:20] LABS: BUN Creatinine Ratio 9.7 (10-20); Calcium 9.1 mg/dl (8.5-10.1); Creatinine Clr Calc Pharmacy 88.1 ml/min; Est GFR (Non-African American) 75.9; Potassium 4.6 mmol/L (3.5-5.1)
[2019-01-21] MEDS: DOCUSATE SODIUM 100 MG CAP PO PRN (07:35)
[2019-01-21] MEDS ORDERED: PIPERACILL/TAZOBAC CONSULT ACTIVE PRN (07:44)
[2019-01-21] MEDS ORDERED: PIPERACILLIN/TAZOBACTAM 4.5 GM in DEXTROSE 5% 100 ML IV ONE (08:00)
[2019-01-21] MEDS: INSULIN ASPART 100 UNITS/ML 3 ML PEN SC SCH ×4 (09:04→20:42)
[2019-01-21] MEDS: POLYETHYLENE (MIRALAX) 17 GM PACK PO PRN (09:16)
--- NOTE | 2019-01-21 10:21 | Urology Progress Note ---
Date of Service January 21, 2019 Results & Data Vital Signs (Past 12 Hours) Vital Signs Temp Pulse Resp BP Pulse Ox 01/21/19 07:30 37.3 C 82 18 104/60 95 01/21/19 06:02 38.4 C H 01/21/19 03:59 38.3 C H 85 17 107/63 91 01/21/19 02:56 37.8 C H 01/21/19 00:21 37.9 C H 01/20/19 23:05 38.1 C H 82 18 102/63 94
[2019-01-21] MEDS: KETOROLAC TROMETHAMINE 15 MG/ML VIAL IV PRN ×2 (11:31→18:35)
--- NOTE | 2019-01-21 12:31 | Pharmacy Report ---
Pharmacy Glycemic Short Note 2 - Date of Service January 21, 2019 - Glycemic Short BSG Results (Last 24 hours): 01/20/19 01/20/19 01/21/19 17:18 20:14 05:30 Glucose 116 H POC Glucose 221 H 125 H 01/21/19 01/21/19 08:27 12:07 Glucose POC Glucose 168 H 164 H Laboratory Tests 01/20/19 07:05 Estimat Average Glucose 301 Hemoglobin A1c 12.1 H OUTPATIENT ANTIDIABETIC REGIMEN: * Lantus 30 units @1630; Regular sliding scale * A1c = pending ASSESSMENT: * POD 1, left scrotal exploration w/ evacuation of hematoma and reactive hydrocele, excision of left appendix testis and drain placement. * Patient had reduced dose of Lantus 01/19 for surgery 01/20, back to home dose. * Blood sugars acceptable for Type 1 diabetic, A1c 12.1%, continue orders at this time. PLAN FOR INPATIENT GLYCEMIC CONTROL: * Basal insulin * Lantus 30 units SQ daily with dinner * Bolus insulin * NovoLog per scale ACHS or Q6hrs while NPO * Goal Range: Low 110 mg/dL - High 140 mg/dL * Correction Factor: 25 mg/dL/unit * Nutritional / Prandial insulin per carb ratio of 1 unit per 7 grams CHO consumed
[2019-01-21] MEDS: PIPERACILLIN/TAZOBACTAM 3.375 GM in DEXTROSE 5% 100 ML IV SCH ×2 (12:43→20:29)
--- NOTE | 2019-01-21 13:26 | Hospitalist Progress Note ---
Date of Service January 21, 2019 Assessment & Plan (1) Left groin pain: [place] reactive hydrocela with isolated hematoma -drained on Dr. Elmer Cade urologist. Pt reports continuous swelling of the left testicle and moderate tenderness. Continue pain control as needed.Started Zosyn IV Q8 hr empirically withe wound cultures are pending for specificity and sensitivity.We will plan to repeat ultrasound of the left testicle to rule out any other pathology such as decreased blood flow and or collection of fluid in the testicles. (2) Hernia, inguinal, left: S/p repair at [facility]. CT a/p on 01/16 showed normal post-operative changes. Patient was evaluated by Dr. Odonnell in ER.Status post operative day 2 removal of hydrocele and hematoma of the left testicle - Continue pain control and bowel regimen - See above (3) Left hydrocele: Left hydrocele I removed during the procedure on January [address] Elmer Cade. - As above. (4) Diabetes: Patient with insulin dependent DM. - Continue Lantus 30u qHS - Sliding scale insulin - Glycemic consult Continues (5) Hypertension: Blood pressure well controlled at present. - Holding lisinopril for now - Continue to monitor (6) Dyslipidemia: Chronic. - Continue atorvastatin (7) Epilepsy: Chronic. - Continue Keppra (8) DVT prophylaxis: Since patient is postoperative and continues to complain of pain in the left scrotum will start Lovenox 40 mg sc for DVT prophylaxis. Subjective Pt seen and examined at the bedside. Pt continues to have low grade fever and his left scrotum with testicle is moderately swollen and erythematous.Pt states that is is in moderate pain. PO intake is fair. Pt has regular BM-s. Review of Systems Review of Systems: All systems reviewed & are unremarkable except as noted in HPI & below Physical Exam Constitutional: well nourished; no acute distress and not ill appearing Eyes: PERRL, conjunctivae normal, anicteric sclerae eyes not dysmorphic ENMT: external ear and nose normal, oropharynx normal Mallampati Class: II Neck: trachea midline, no thyromegaly normal visual inspection and trachea midline; no tracheal deviation Respiratory: normal respiratory effort, lungs clear to auscultation normal respiratory effort; no respiratory distress and no labored breathing Auscultation: lungs clear to auscultation bilaterally Cardiovascular: RRR, no murmur, no edema Rate/Rhythm: regular rate and regular rhythm; not tachycardic Chest (Breasts): normal inspection/palpation of breasts Gastrointestinal (Abdomen): normal bowel sounds, soft, nontender, no hepatosplenomegaly Percussion/Palpation: abdomen soft; no guarding and abdomen not rigid Musculoskeletal: no cyanosis or clubbing, extremities motor strength 5/5 Spine: normal cervical ROM Extremities: full ROM of extremities Skin: no rashes and no lesions Neurologic: patellar DTR's 2+ bilat, sensation intact CN's II-XI intact bilaterally Speech / Cognition: normal speech Motor/Sensory: no tremor Psychiatric: A+Ox3, euthymic affect Orientation: alert and oriented x 3 Affect: + flat affect Genitourinary: + scrotum abnormality and + testicular swelling Left scrotum is enlarged and erythematous with glossy appearing skin. Fluctuating mass beneath. Tender to palpation. [address] and draining cath. Lymphatic: no cervical or axillary lymphadenopathy no lymphadenopathy Results & Data Vital Signs (Past 12 Hours) Vital Signs Temp Pulse Resp BP Pulse Ox 01/21/19 11:16 36.8 C 70 18 113/61 97 01/21/19 07:30 37.3 C 82 18 104/60 95 01/21/19 06:02 38.4 C H 01/21/19 03:59 38.3 C H 85 17 107/63 91 01/21/19 02:56 37.8 C H PG Care Time/CCT Total # of Minutes Spent Total Time Spent with Patient: Total time spent is greater than 50% in coordination of care (as documented) at patient's floor/unit and/or counseling p atient: (1) Epilepsy Epilepsy type: unspecified (2) Diabetes Diabetes mellitus complication status: without complication Diabetes mellitus type: type 1 Qualified Code(s): E10.9 - Type 1 diabetes mellitus without complications (3) Hypertension Hypertension type: essential hypertension Qualified Code(s): I10 - Essential (primary) hypertension
--- NOTE | 2019-01-21 14:32 | Anesthesiology Progress Note ---
Date of Service January 21, 2019 Anesthesia Post Procedure Vital Signs Vital Signs: Temp Pulse Resp BP Pulse Ox 01/21/19 11:16 36.8 C 70 18 113/61 97 01/21/19 07:30 37.3 C 82 18 104/60 95 01/21/19 06:02 38.4 C H 01/21/19 03:59 38.3 C H 85 17 107/63 91 01/21/19 02:56 37.8 C H 01/21/19 00:21 37.9 C H 01/20/19 23:05 38.1 C H 82 18 102/63 94 01/20/19 21:25 37.5 C 01/20/19 20:07 38.8 C H 97 H 18 113/63 97 01/20/19 15:06 37.7 C H 75 16 101/63 96 Pain Intensity Testicles: Pain Intensity: 9 Scrotal: Pain Intensity: 8 Notes Mental Status: alert / awake / arousable Patient Amnestic to Procedure: Yes Nausea / Vomiting: adequately controlled Pain: adequately controlled Airway Patency, RR, SpO2: stable & adequate BP & HR: stable & adequate Hydration State: stable & adequate Anesthetic Complications: no major complications apparent and Pt Satisfied with anesthetic care
--- NOTE | 2019-01-21 14:34 | Urology Progress Note ---
Date of Service January 21, 2019 Assessment & Plan (1) Left hydrocele: (2) Left groin pain: A/P 43 yo inmate POD#1 s/p L inguinal exploration. Would consider antibiotic coverage postop eg Bactrim DS BID x 10 days to avoid wound infection. Questionable malingering component. If discomfort remains, the souce should no longer be a hematoma / hydrocoele - adequately drained. Pain control per primary service. Would leave KATRIN in place until POD#7 - can be removed at facility. OP wound check with our service in 2-3 weeks. Thank you for allowing us to participate in this patient's acute care. Please contact our service with any questions or concerns. Subjective 43 yo inmate POD#1 s/p L scrotal exploration and drainage. Past notes and intraop findings reviewed. Patient c/o persistent pain in the area, intermittent drainage with 1/4" Rachel. Per nursing there was some question of manipulation of the Tilly on the patient's part. Temp noted. Review of Systems Constitutional: + fever Eyes: no blind spots Ear, Nose, Mouth, Throat: no ear trauma Respiratory: no hemoptysis Cardiovascular: no chest pain Gastrointestinal: + abdominal pain; no nausea and no vomiting Genitourinary: + scrotal swelling Musculoskeletal: no radicular pain Integumentary: no boil Neurologic: no paralysis and no numbness Physical Exam Constitutional: no acute distress Eyes: eyes not dysmorphic Neck: trachea midline; no anterior neck swelling Respiratory: no respiratory distress and does not use accessory muscles Cardiovascular: Vessels: radial pulses present Gastrointestinal (Abdomen): Inspection/Auscultation: abdomen not distended Percussion/Palpation: abdomen soft; abdomen nontender Skin: normal turgor Neurologic: CN's II-XI intact bilaterally and awake; not obtunded Psychiatric: Orientation: oriented x 3 Genitourinary: Inc c/d/i without purulence or evidence of cellulitis. Expected edema and discomfort after exploration, no collections present. No further drainage, no crepitus, necrosis or breakdown. Results & Data Vital Signs (Past 12 Hours) Vital Signs Temp Pulse Resp BP Pulse Ox 01/21/19 11:16 36.8 C 70 18 113/61 97 01/21/19 07:30 37.3 C 82 18 104/60 95 01/21/19 06:02 38.4 C H 07/12/19 03:59 38.3 C H 85 17 107/63 91 01/21/19 02:56 37.8 C H Laboratory Results Laboratory Results - last 24 hr 01/20/19 01/20/19 01/21/19 17:18 20:14 05:30 WBC 14.72 H RBC 3.83 L Hgb 11.8 L Hct 35.3 L MCV 92.2 MCH 30.8 MCHC 33.4 RDW Std Deviation 43.4 RDW Coeff of Molly 12.8 Plt Count 319 MPV 9.8 Sodium Potassium Chloride Carbon Dioxide Anion Gap BUN Creatinine Est Cr Clr Drug Dosing Est GFR ( Amer) Est GFR (Non-Af Amer) BUN/Creatinine Ratio Glucose POC Glucose 221 H 125 H Calcium 01/21/19 01/21/19 01/21/19 05:30 08:27 12:07 WBC RBC Hgb Hct MCV MCH MCHC RDW Std Deviation RDW Coeff of Molly Plt Count MPV Sodium 136 Potassium 4.6 Chloride 98 Carbon Dioxide 33 H Anion Gap 5.0 BUN 11 Creatinine 1.17 Est Cr Clr Drug Dosing 88.1 Est GFR ( Amer) 88.0 Est GFR (Non-Af Amer) 75.9 BUN/Creatinine Ratio 9.7 L Glucose 116 H POC Glucose 168 H 164 H Calcium 9.1
--- NOTE | 2019-01-21 16:05 | Ultrasound Report ---
ULTRASOUND TESTES AND SCROTUM CLINICAL HISTORY: Left testicular pain. COMPARISON STUDY: Scrotal ultrasound dated 01/17/2019. TECHNIQUE: Real-time, grayscale, and color Doppler sonography of the testes and scrotum is performed. Images are reviewed in the transverse and longitudinal planes. FINDINGS: The right testis is normal in size and homogeneous in echotexture, measuring 6.1 x 3.4 x 3.6 cm. The left testis is heterogeneous in echotexture, measuring 5.0 x 3.4 x 3.1 cm. A catheter is noted adjace nt to the left testis. Normal Doppler waveforms are shown in the right testis. There is markedly dimi nished vascularity of the left testis with blunted arterial waveforms and only trace flow is seen. The right epididymal head is normal in appearance, measuring 1.3 cm. The left epididymis appears enla rged and heterogeneous. No varicocele or hydrocele is seen. Scrotal thickening and edema is seen on the left. IMPRESSION: 1. Unremarkable sonographic appearance of the right testis. 2. There is increasing heterogeneity of the left testis as compared to 01/17/2019 with only trace blood flow identified. Blood flow appears diminished from previous. This is highly concerning for vascular compromise/torsion. 3. A catheter is present adjacent to the left testis. 4. There is significant edema of the left hemiscrotum. Electronically signed by: Francis Moreno M.D. 01/21/2019 4:04 PM
[2019-01-21 16:51] LABS: INR 1.1 (0.9-1.1); Partial Thromboplastin Ratio 1.2; Partial Thromboplastin Time 33.3 Seconds (21.0-31.0); Prothrombin Time 11.4 Seconds (9.0-12.0)
[2019-01-21] MEDS: CARBOHYDRATES FOR HYPOGLYCEMIA PO PRN (17:08)
[2019-01-21] MEDS: INSULIN GLARGINE SOLOSTAR 100 UNITS/ML 3 ML PEN SQ SCH (18:09)
[2019-01-21] MEDS: ENOXAPARIN INJ 40 MG/0.4 ML SYR SQ SCH (19:15)
[2019-01-21] MEDS: levETIRAcetam 250 MG TAB PO SCH (20:30)
[2019-01-21] MEDS: TRAZODONE HCL 50 MG TAB PO SCH (20:30)
[2019-01-21] MEDS: FLUOXETINE HCL 20 MG CAP PO SCH (20:31)
[2019-01-21] MEDS: ATORVASTATIN 40 MG TAB PO SCH (21:13)
[2019-01-22] MEDS: OXYCODONE HCL IR 5 MG TAB (IMMEDIATE RELEASE) PO PRN ×5 (00:09→23:49)
[2019-01-22] MEDS: HYDROmorphone INJ 1 MG/ML SYRINGE IV PRN ×5 (00:50→21:02)
[2019-01-22] MEDS: PIPERACILLIN/TAZOBACTAM 3.375 GM in DEXTROSE 5% 100 ML IV SCH ×3 (05:30→20:04)
[2019-01-22] MEDS: ENOXAPARIN INJ 40 MG/0.4 ML SYR SQ SCH (05:47)
[2019-01-22] MEDS: KETOROLAC TROMETHAMINE 15 MG/ML VIAL IV PRN ×3 (08:10→21:47)
[2019-01-22] MEDS: INSULIN ASPART 100 UNITS/ML 3 ML PEN SC SCH ×4 (09:06→21:03)
[2019-01-22 09:08] LABS: Albumin Globulin Ratio 0.5 (0.9-2); Albumin Level 2.4 gm/dl (3.4-5.0); BUN Creatinine Ratio 9.5 (10-20); Bilirubin,Total 0.3 mg/dl (0.2-1); Calcium 8.9 mg/dl (8.5-10.1); Creatinine Clr Calc Pharmacy 109.6 ml/min; Est GFR (African American) 114.6; Est GFR (Non-African American) 98.9; Globulin 4.4 gm/dl (2.5-4.0); Total Protein 6.8 gm/dl (6.4-8.2)
[2019-01-22 09:09] LABS: Potassium 3.8 mmol/L (3.5-5.1)
--- NOTE | 2019-01-22 10:35 | Pharmacy Report ---
Pharmacy Glycemic Short Note 2 - Date of Service January 22, 2019 - Glycemic Short BSG Results (Last 24 hours): 01/21/19 01/21/19 01/21/19 12:07 17:03 17:07 Glucose POC Glucose 164 H 62 L* 59 L* 01/21/19 01/21/19 01/22/19 17:30 20:40 07:50 Glucose 210 H POC Glucose 99 201 H 01/22/19 08:19 Glucose POC Glucose 207 H Laboratory Tests 01/20/19 07:05 Estimat Average Glucose 301 Hemoglobin A1c 12.1 H OUTPATIENT ANTIDIABETIC REGIMEN: * Lantus 30 units @1630; Regular sliding scale * A1c = pending ASSESSMENT: * Some low BSGs yesterday evening, likely due to correctional insulin. * Patient had reduced dose of Lantus 01/19 for surgery 01/20, back to home dose. * Blood sugars acceptable for Type 1 diabetic, A1c 12.1%, continue orders at this time. PLAN FOR INPATIENT GLYCEMIC CONTROL: * Basal insulin * Lantus 30 units SQ daily with dinner * Bolus insulin - loosen slightly * NovoLog per scale ACHS or Q6hrs while NPO * Goal Range: Low 110 mg/dL - High 140 mg/dL * Correction Factor: 30 mg/dL/unit * Nutritional / Prandial insulin per carb ratio of 1 unit per 10 grams CHO consumed
--- NOTE | 2019-01-22 12:36 | Urology Progress Note ---
Date of Service January 22, 2019 Subjective 43-year-old male status post left hernia repair several weeks ago with increasing pain in his left testis. He had serial sonograms which appear to have shown increasing evidence of decreased blood flow this seems to correlate with ongoing severe pain. Yesterday a sonogram that was done after an exploration that was designed to relieve any pressure around his testis from hydrocele was done he does have some drainage that is persisting. He states that the pain is ongoing and is worse. His white blood cell count was up slightly yesterday 14,000 and there is none today. He is eating and is lethargic from taking pain medicine when I saw him but states that the pain is severe and he would be amenable to having his testicle removed if that would relieve his pain. Presumably swelling in his groin area may be restricting the blood flow unclear however at this time whether this will resolve or whether the testis itself has intrinsic swelling patient is eating this morning. Discussed making him n.p.o. after midnight to reassess whether orchiectomy possibly indicated will order repeat white blood cell count Physical Exam Physical Exam: Patient points to his testis as source of extreme pain. There is some serous fluid from the drain which I replaced with dry dressings No significant erythema of the overlying skin but it is clear that the left testis and hemiscrotum is swollen Patient appeared lethargic but was alert and responsive when questioned Results & Data Vital Signs (Past 12 Hours) Vital Signs Temp Pulse Resp BP Pulse Ox 01/22/19 07:32 36.8 C 70 19 103/57 L 94
[2019-01-22] MEDS: POLYETHYLENE (MIRALAX) 17 GM PACK PO PRN (15:26)
[2019-01-22] MEDS: DOCUSATE SODIUM 100 MG CAP PO PRN (15:26)
--- NOTE | 2019-01-22 16:11 | Hospitalist Progress Note ---
Date of Service January 22, 2019 Assessment & Plan (1) Left groin pain: [place] reactive hydrocela with isolated hematoma -drained on Dr. Elmer Cade urologist. Pt reports continuous swelling of the left testicle and moderate tenderness. Continue pain control as needed.Cont Zosyn IV Q8 hr empirically withe wound cultures are pending for specificity and sensitivity.WBC now 14k. Cultues still pending. Added Ceftriaxone IV for better coverage..Discussed with Dr. Cade and he recommended ice pack and conservative treatment ongoing. (2) Hernia, inguinal, left: S/p repair at [facility]. CT a/p on 01/16 showed normal post-operative soares ges. Patient was evaluated by Dr. Odonnell in ER.Status post operative day 2 removal of hydrocele and hematoma of the left testicle - Continue pain control and bowel regimen - See above (3) Left hydrocele: Left hydrocele I removed during the procedure on January [address] Elmer Cade. - As above. (4) Diabetes: Patient with insulin dependent DM. - Continue Lantus 30u qHS - Sliding scale insulin - Glycemic consult Continues (5) Hypertension: Blood pressure well controlled at present. - Holding lisinopril for now - Continue to monitor (6) Dyslipidemia: Chronic. - Continue atorvastatin (7) Epilepsy: Chronic. - Continue Keppra (8) DVT prophylaxis: Since patient is postoperative and continues to complain of pain in the left scrotum will start Lovenox 40 mg sc for DVT prophylaxis. Subjective Pt seen and examined at the bedside. He reports that left testicular swelling is the same. Pt reports that swelling did not increase. Ice packs help. He also needs pain medication around the clock. Appetite is improving. It was noted elevated WBC this morning. Pt denies fever, chills, chest pain, SOB abdominal pain, frequency and urgency. Pt is afebrile. Review of Systems Review of Systems: All systems reviewed & are unremarkable except as noted in HPI & below Physical Exam Constitutional: WD/WN, vitals as above well developed and well nourished Eyes: PERRL, conjunctivae normal, anicteric sclerae ENMT: external ear and nose normal, oropharynx normal Neck: trachea midline, no thyromegaly Respiratory: normal respiratory effort, lungs clear to auscultation Cardiovascular: RRR, no murmur, no edema Chest (Breasts): normal inspection/palpation of breasts Gastrointestinal (Abdomen): normal bowel sounds, soft, nontender, no hepatosplenomegaly Musculoskeletal: no cyanosis or clubbing, extremities motor strength 5/5 Skin: no rashes, warm and dry Neurologic: patellar DTR's 2+ bilat, sensation intact Psychiatric: A+Ox3, euthymic affect Genitourinary: + hydrocele, + testes abnormality, + external erythema, + hernia and + testicular swelling Lymphatic: no cervical or axillary lymphadenopathy Results & Data Vital Signs (Past 12 Hours) Vital Signs Temp Pulse Resp BP Pulse Ox 01/22/19 15:18 36.8 C 70 16 117/54 L 97 01/22/19 07:32 36.8 C 70 19 103/57 L 94 PG Care Time/CCT Total # of Minutes Spent Total Time Spent with Patient: Total time spent is greater than 50% in coordination of care (as documented) at patient's floor/unit and/or counseling patient: (1) Diabetes Diabetes mellitus type: type 1 Diabetes mellitus complication status: without complication Qualified Code(s): E10.9 - Type 1 diabetes mellitus without complications (2) Hypertension Hypertension type: essential hypertension Qualified Code(s): I10 - Essential (primary) hypertension (3) Epilepsy Epilepsy type: unspecified
[2019-01-22] MEDS ORDERED: DiphenhydrAMINE HCL 50 MG/ML VIAL IV STA (16:16)
[2019-01-22] MEDS: cefTRIAXone SODIUM 2,000 MG in DEXTROSE 5% 50 ML IV SCH (16:58)
[2019-01-22] MEDS: INSULIN GLARGINE SOLOSTAR 100 UNITS/ML 3 ML PEN SQ SCH (18:08)
[2019-01-22] MEDS: TRAZODONE HCL 50 MG TAB PO SCH (21:04)
[2019-01-22] MEDS: FLUOXETINE HCL 20 MG CAP PO SCH (21:04)
[2019-01-22] MEDS: ATORVASTATIN 40 MG TAB PO SCH (21:04)
[2019-01-22] MEDS: levETIRAcetam 250 MG TAB PO SCH (21:04)
[2019-01-23] MEDS: HYDROmorphone INJ 1 MG/ML SYRINGE IV PRN ×4 (01:10→18:08)
[2019-01-23] MEDS ORDERED: Nursing to Pharmacy Communication ONE (01:24)
[2019-01-23] MEDS: PIPERACILLIN/TAZOBACTAM 3.375 GM in DEXTROSE 5% 100 ML IV SCH ×3 (04:57→21:04)
[2019-01-23] MEDS: ENOXAPARIN INJ 40 MG/0.4 ML SYR SQ SCH (05:49)
[2019-01-23] MEDS: OXYCODONE HCL IR 5 MG TAB (IMMEDIATE RELEASE) PO PRN ×2 (05:49→19:41)
[2019-01-23] MEDS: INSULIN ASPART 100 UNITS/ML 3 ML PEN SC SCH ×4 (05:52→21:03)
[2019-01-23 06:11] LABS: Basophils # (auto) 0.03 K/uL (0-0.2); Basophils % (auto) 0.4 %; Eosinophils % (auto) 5.8 %; Hematocrit (blood only) 33.3 % (42-52); Hemoglobin 11.1 g/dL (14.0-18.0); Immature Granulocytes # (auto) 0.02 K/uL (0.00-0.02); Immature Granulocytes % (auto) 0.2 %; Lymphocytes # (auto) 2.43 K/uL (1.2-3.4); Lymphocytes % (auto) 28.4 %; Mean Corpuscular Hgb Conc 33.3 g/dL (32-36); Mean Corpuscular Volume 93.3 fL (80-100); Mean Platelet Volume 9.4 fL (7.4-10.4); Monocytes # (auto) 0.88 K/uL (0.11-0.59); Monocytes % (auto) 10.3 %; Neutrophils % (auto) 54.9 %; Platelet Count 325 K/uL (130-400); RDW Coefficient of Variation 12.9 % (11.5-14.5); RDW Standard Deviation 44.4 fL (36.4-46.3); Red Blood Count 3.57 M/uL (4.7-6.1); White Blood Count 8.56 K/uL (4.8-10.8)
[2019-01-23 06:58] LABS: Albumin Level 2.5 gm/dl (3.4-5.0); BUN Creatinine Ratio 11.2 (10-20); Calcium 8.9 mg/dl (8.5-10.1); Creatinine Clr Calc Pharmacy 106.3 ml/min; Est GFR (African American) 110.4; Est GFR (Non-African American) 95.2; Potassium 3.9 mmol/L (3.5-5.1)
[2019-01-23 07:01] LABS: Albumin Globulin Ratio 0.5 (0.9-2); Bilirubin,Total 0.6 mg/dl (0.2-1); Globulin 4.7 gm/dl (2.5-4.0); Total Protein 7.2 gm/dl (6.4-8.2)
[2019-01-23] MEDS: KETOROLAC TROMETHAMINE 15 MG/ML VIAL IV PRN ×3 (07:41→23:35)
[2019-01-23] MEDS: SODIUM CHLORIDE 0.9% 1000ML 1,000 ML IV SCH ×2 (07:41→21:04)
[2019-01-23] MEDS ORDERED: PSYLLIUM 58.6% POWDER PACKET PO PRN (08:58)
--- NOTE | 2019-01-23 08:58 | Urology Progress Note ---
Date of Service January 23, 2019 Assessment & Plan (1) Left groin pain: A/P 43 yo male with L testicular ischemia s/p hydrocoele repair, unimproved POD#3 s/p drainage of L hydrocoele and hematoma. Risks and benefits of orchiectomy reviewed, consent obtained for left scrotal orchiectomy. Will likely leave drain in place, Vanco x 1 gm personal chef to OR. To follow in OR today. Subjective 43 yo inmate, POD# 3 s/p drainage of L hydrocoele and hematoma of the cord with a history of L testicular ischemia after hernia repair ~6-7 weeks ago. Past notes are reviewed. Patient with intractable pain, unimproved blood supply on doppler - requests orchiectomy, discussed yesterday with Dr. Leonardo. No other changes. Review of Systems Constitutional: + fever (fevers yesterday) Eyes: no diplopia Ear, Nose, Mouth, Throat: no ear trauma Respiratory: no hemoptysis Cardiovascular: no chest pain Gastrointestinal: no vomiting Genitourinary: + testicle pain (left side) Musculoskeletal: no joint pain Integumentary: no acne Neurologic: no paralysis Endocrine: + fatigue Physical Exam Constitutional: WD/WN, vitals as above Neck: trachea midline; no anterior neck swelling Respiratory: no respiratory distress and does not use accessory muscles Cardiovascular: Vessels: radial pulses present Gastrointestinal (Abdomen): Inspection/Auscultation: abdomen not distended and no abdominal edema Percussion/Palpation: abdomen nontender and + abdomen not soft Musculoskeletal: Head/Neck/Chest: normocephalic Skin: normal turgor Genitourinary: edema, exam unchanged, inc c/d/i without evidence of cellulitis, drain in place. Results & Data Vital Signs (Past 12 Hours) Vital Signs Temp Pulse Resp BP Pulse Ox 01/23/19 07:28 37.3 C 65 17 103/56 L 95 01/23/19 00:02 37.3 C 65 16 104/53 L 98 Laboratory Results Laboratory Results - last 48 hr 01/21/19 01/21/19 01/21/19 12:07 16:27 17:03 WBC RBC Hgb Hct MCV MCH MCHC RDW Std Deviation RDW Coeff of Molly Plt Count MPV Immature Gran % (Auto) Neut % (Auto) Lymph % (Auto) [place] % (Auto) Eos % (Auto) Baso % (Auto) Immature Gran # (Auto) Neut # (Auto) Lymph # (Auto) [place] # (Auto) Eos # (Auto) Baso # (Auto) PT 11.4 INR 1.1 APTT 33.3 H PTT Ratio 1.2 Sodium Potassium Chloride Carbon Dioxide Anion Gap BUN Creatinine Est Cr Clr Drug Dosing Est GFR ( Amer) Est GFR (Non-Af Amer) BUN/Creatinine Ratio Glucose POC Glucose 164 H 62 L* Calcium Total Bilirubin AST ALT Alkaline Phosphatase Total Protein Albumin Globulin Albumin/Globulin Ratio 01/21/19 01/21/19 01/21/19 17:07 17:30 20:40 WBC RBC Hgb Hct MCV MCH MCHC RDW Std Deviation RDW Coeff of Molly Plt Count MPV Immature Gran % (Auto) Neut % (Auto) Lymph % (Auto) [place] % (Auto) Eos % (Auto) Baso % (Auto) Immature Gran # (Auto) Neut # (Auto) Lymph # (Auto) [place] # (Auto) Eos # (Auto) Baso # (Auto) PT INR APTT PTT Ratio Sodium Potassium Chloride Carbon Dioxide Anion Gap BUN Creatinine Est Cr Clr Drug Dosing Est GFR ( Amer) Est GFR (Non-Af Amer) BUN/Creatinine Ratio Glucose POC Glucose 59 L* 99 201 H Calcium Total Bilirubin AST ALT Alkaline Phosphatase Total Protein Albumin Globulin Albumin/Globulin Ratio 01/22/19 01/22/19 01/22/19 07:50 08:19 12:06 WBC RBC Hgb Hct MCV MCH MCHC RDW Std Deviation RDW Coeff of Molly Plt Count MPV Immature Gran % (Auto) Neut % (Auto) Lymph % (Auto) [place] % (Auto) Eos % (Auto) Baso % (Auto) Immature Gran # (Auto) Neut # (Auto) Lymph # (Auto) [place] # (Auto) Eos # (Auto) Baso # (Auto) PT INR APTT PTT Ratio Sodium 137 Potassium 3.8 D Chloride 101 Carbon Dioxide 32 Anion Gap 5.0 BUN 9 Creatinine 0.94 Est Cr Clr Drug Dosing 109.6 Est GFR ( Amer) 114.6 Est GFR (Non-Af Amer) 98.9 BUN/Creatinine Ratio 9.5 L Glucose 210 H POC Glucose 207 H 272 H Calcium 8.9 Total Bilirubin 0.3 AST 9 L ALT 10 L Alkaline Phosphatase 67 Total Protein 6.8 Albumin 2.4 L Globulin 4.4 H Albumin/Globulin Ratio 0.5 L 01/22/19 01/22/19 01/23/19 17:26 20:37 05:41 WBC RBC Hgb Hct MCV MCH MCHC RDW Std Deviation RDW Coeff of Molly Plt Count MPV Immature Gran % (Auto) Neut % (Auto) Lymph % (Auto) [place] % (Auto) Eos % (Auto) Baso % (Auto) Immature Gran # (Auto) Neut # (Auto) Lymph # (Auto) [place] # (Auto) Eos # (Auto) Baso # (Auto) PT INR APTT PTT Ratio Sodium Potassium Chloride Carbon Dioxide Anion Gap BUN Creatinine Est Cr Clr Drug Dosing Est GFR ( Amer) Est GFR (Non-Af Amer) BUN/Creatinine Ratio Glucose POC Glucose 151 H 147 H 88 Calcium Total Bilirubin AST ALT Alkaline Phosphatase Total Protein Albumin Globulin Albumin/Globulin Ratio 01/23/19 01/23/19 05:59 05:59 WBC 8.56 RBC 3.57 L Hgb 11.1 L Hct 33.3 L MCV 93.3 MCH 31.1 MCHC 33.3 RDW Std Deviation 44.4 RDW Coeff of Molly 12.9 Plt Count 325 MPV 9.4 Immature Gran % (Auto) 0.2 Neut % (Auto) 54.9 Lymph % (Auto) 28.4 [place] % (Auto) 10.3 Eos % (Auto) 5.8 Baso % (Auto) 0.4 Immature Gran # (Auto) 0.02 Neut # (Auto) 4.70 Lymph # (Auto) 2.43 [place] # (Auto) 0.88 H Eos # (Auto) 0.50 Baso # (Auto) 0.03 PT INR APTT PTT Ratio Sodium 139 Potassium 3.9 Chloride 103 Carbon Dioxide 32 Anion Gap 4.0 BUN 11 Creatinine 0.97 Est Cr Clr Drug Dosing 106.3 Est GFR ( Amer) 110.4 Est GFR (Non-Af Amer) 95.2 BUN/Creatinine Ratio 11.2 Glucose 87 POC Glucose Calcium 8.9 Total Bilirubin 0.6 AST 10 L ALT 10 L Alkaline Phosphatase 62 Total Protein 7.2 Albumin 2.5 L Globulin 4.7 H Albumin/Globulin Ratio 0.5 L
[2019-01-23] MEDS ORDERED: GLYCERIN ADULT 12 EA SUPP PR ONE (08:59)
[2019-01-23] MEDS ORDERED: GLYCERIN ADULT 12 EA SUPP PR PRN (09:03)
[2019-01-23] MEDS ORDERED: SOD PHOSPHATE/SOD BIPHOSPHATE ENEMA 132 ML BTL PR PRN (09:04)
[2019-01-23] MEDS ORDERED: VANCOMYCIN HCL 1,000 MG in SODIUM CHLORIDE 0.9% 250 ML IV ONE (09:08)
[2019-01-23] MEDS ORDERED: VANCOMYCIN HCL 1,000 MG/270 ML BAG IV STA (09:15)
--- NOTE | 2019-01-23 13:17 | Pharmacy Report ---
Pharmacy Glycemic Short Note 2 - Date of Service January 23, 2019 - Glycemic Short BSG Results (Last 24 hours): 01/22/19 01/22/19 01/23/19 17:26 20:37 05:41 Glucose POC Glucose 151 H 147 H 88 01/23/19 01/23/19 05:59 11:57 Glucose 87 POC Glucose 71 Laboratory Tests 01/20/19 07:05 Estimat Average Glucose 301 Hemoglobin A1c 12.1 H OUTPATIENT ANTIDIABETIC REGIMEN: * Lantus 30 units @1630; Regular sliding scale * A1c = 12.1 ASSESSMENT: * BSGs over the previous 24h: [phone]. He is NPO. Given that his BSGs have trended down, we will provide a reduced lantus dose this evening. PLAN FOR INPATIENT GLYCEMIC CONTROL: * Basal insulin * Lantus 20 units for BSGs <100, 30 units if above * Bolus insulin - loosen slightly * NovoLog per scale ACHS or Q6hrs while NPO * Goal Range: Low 110 mg/dL - High 140 mg/dL * Correction Factor: 30 mg/dL/unit * Nutritional / Prandial insulin per carb ratio of 1 unit per 10 grams CHO consumed
--- NOTE | 2019-01-23 14:09 | Anesthesiology Consultation ---
Date of Service January 23, 2019 Assessment & Plan (1) Encounter for pre-operative examination: Chart Review Chart Review: Acceptable Risk for Surgery History Surgery Operation Date: 01/20/19 09:55 Proposed Procedures p Scrotal Exploration, Hematoma Evacuation, Possible Left Orchiectomy - Elmer Cade MD Operation Date: 01/23/19 14:00 Proposed Procedures p Scrotal Orchiectomy(Left) - Elmer Cade MD Height/Weight Height: 6 ft 2 in Weight: 76.5 kg Allergies Allergy/AdvReac Type Severity Reaction Status Date / Time iodine Allergy Severe Unknown Verified 01/16/19 15:25 shellfish derived Allergy Severe Unknown Verified 01/16/19 15:25 penicillin G Allergy Unknown Verified 01/17/19 03:34 Medications Home Medications Medication Instructions Recorded Confirmed Last Taken aspirin [Aspir-81] 81 mg PO DAILY 01/13/19 01/16/19 01/14/19 atorvastatin 40 mg PO HS 01/13/19 01/16/19 Unknown fluoxetine 20 mg PO HS 01/13/19 01/16/19 01/15/19 insulin glargine [Lantus Solostar 30 unit SUBCUT .DAILY AT 1630 01/13/19 01/16/19 01/15/19 U-100 Insulin] insulin regular human [Humulin R 1 sliding scale dose SUBCUT 01/13/19 01/16/19 01/16/19 07:00 Regular U-100 Insuln] USEASDIRECTD levetiracetam 250 mg PO HS 01/13/19 01/16/19 01/15/19 lisinopril 5 mg PO DAILY 01/13/19 01/16/19 01/14/19 trazodone 50 mg PO HS 01/13/19 01/16/19 01/15/19 ibuprofen 600 mg PO TID PRN 01/16/19 01/16/19 01/14/19 Active Medications Generic Name Dose Route Start Last Admin Trade Name Freq PRN Reason Stop Dose Admin Acetaminophen 650 mg 01/16/19 21:16 01/21/19 07:34 Tylenol PO 02/15/19 21:15 650 mg Q4H PRN Administration pain/fever Atorvastatin Calcium 40 mg 01/16/19 21:45 01/22/19 21:04 Lipitor PO 02/15/19 21:44 40 mg HS VERA Administration Dextrose 25 - 50 ml 01/16/19 21:16 01/17/19 05:59 Dextrose 50% IV 02/15/19 21:15 25 ml UD PRN Administration Hypoglycemia Protocol Protocol Docusate Sodium 100 mg 01/16/19 21:16 01/22/19 15:26 Colace PO 02/15/19 21:15 100 mg BID PRN Administration Constipation Enoxaparin Sodium 40 mg 01/23/19 06:00 01/23/19 05:49 Lovenox SQ 02/22/19 05:59 Not Given Q24H VERA Fluoxetine HCl 20 mg 01/16/19 21:45 01/22/19 21:04 Prozac PO 02/15/19 21:44 20 mg HS VERA Administration Hydromorphone HCl 1 mg 01/16/19 21:16 01/23/19 04:58 Dilaudid IV 01/30/19 21:15 1 mg Q4H PRN Administration Pain Piperacillin Sod/Tazobactam 115 mls @ 28.75 mls/hr 01/21/19 12:00 01/23/19 12:32 Sod 3.375 gm/ Dextrose IV 01/31/19 11:59 28.8 mls/hr Q8H VERA Administration Protocol Ceftriaxone Sodium 2,000 mg/ 70 mls @ 100 mls/hr 01/22/19 16:15 01/22/19 17:50 Dextrose IV 02/01/19 16:14 Infused Q24H VERA Infusion Protocol Sodium Chloride 1,000 mls @ 125 mls/hr 01/23/19 07:15 01/23/19 07:41 Nss 1000ml IV 02/22/19 07:14 125 mls/hr .Q8H VERA Administration Insulin Aspart 0 units 01/23/19 06:00 01/23/19 12:42 Novolog Flexpen SC 02/22/19 05:59 Not Given Q6 VERA Ketorolac Tromethamine 15 mg 01/21/19 10:42 01/23/19 07:41 Toradol IV 01/24/19 10:41 15 mg Q6H PRN Administration Pain Levetiracetam 250 mg 01/16/19 21:45 01/22/19 21:04 Keppra PO 02/15/19 21:44 250 mg HS VERA Administration Miscellaneous 15 - 30 gm 01/16/19 21:16 01/21/19 17:08 Carbohydrates For Hypoglycemia PO 02/15/19 21:15 15 gm UD PRN Administration Hypoglycemia Treatment Oxycodone HCl 5 mg 01/17/19 13:39 01/23/19 05:49 Roxicodone Immediate Rel PO 01/31/19 13:38 5 mg Q4HWA PRN Administration Pain Polyethylene Glycol 17 gm 01/16/19 21:16 01/22/19 15:26 Miralax Powder Packet PO 02/15/19 21:15 17 gm DAILY PRN Administration Constipation Trazodone HCl 50 mg 01/16/19 21:45 01/22/19 21:04 Desyrel PO 02/15/19 21:44 50 mg HS VERA Administration NPO Date Last Intake of Fluids: 01/22/19 Time Last Intake of Fluids: 23:59 Last Intake of Fluids Comment: Few sips of water with am med Date Last Intake of Solids: 01/22/19 Time Last Intake of Solids: 23:59 Past Medical History Medical History Hydrocele in adult Anemia Epilepsy Hyperlipidemia Hypertension Type 1 diabetes poorly controlled Past Family History Family History Other No pertinent family history in first degree relatives Past Surgical History Surgical History Status post left inguinal herniorrhaphy Social History Smoking Status: Never smoker Do You Dip or Chew Tobacco: No Hx Alcohol Use: No Hx Substance Use: No Physical Exam Vital Signs Last Vital Signs Temp 37.3 C 01/23/19 07:28 Pulse 65 01/23/19 07:28 Resp 17 01/23/19 07:28 BP 103/56 L 01/23/19 07:28 Pulse Ox 95 01/23/19 07:28 Testing Laboratory Results 01/23/19 05:59 01/23/19 05:59 PT 11.4 Seconds (9.0-12.0) 01/21/19 16:27 INR 1.1 (0.9-1.1) 01/21/19 16:27 APTT 33.3 Seconds (21.0-31.0) H 01/21/19 16:27 Hemoglobin A1c 12.1 % (4.5-5.6) H 01/20/19 07:05 Urine Color Yellow 01/16/19 22:50 Urine Appearance Clear (Clear) 01/16/19 22:50 Urine pH 5.0 (4.5-7.5) 01/16/19 22:50 Ur Specific [place] > 1.045 (1.000-1.030) H 01/16/19 22:50 Urine Protein Negative (Negative) 01/16/19 22:50 Urine Glucose (UA) 3+ (Negative) H 01/16/19 22:50 Urine Ketones 3+ (Negative) H 01/16/19 22:50 Urine Nitrite Negative (Negative) 01/16/19 22:50 Ur Leukocyte Esterase Negative (Negative) 01/16/19 22:50 01/21/19 06:16 Urine Culture - Final Urine,Random No growth - less than 1,000 colonies/mL. 01/21/19 05:30 Aerobic Blood Culture - Preliminary Blood No growth in Aerobic bottle after 48 hours. Anaerobic Blood Culture - Preliminary No growth in Anaerobic bottle after 48 hours. 01/21/19 05:36 Aerobic Blood Culture - Preliminary Blood No growth in Aerobic bottle after 48 hours. Anaerobic Blood Culture - Preliminary No growth in Anaerobic bottle after 48 hours. 01/23/19 01/23/19 11:57 05:41 POC Glucose 71 88 Electrocardiogram Date: 01/16/19 Findings: + NSR @ (72) Chest X-Ray Date: 01/19/19 Findings: + NAD
[2019-01-23] MEDS ORDERED: MIDAZOLAM HCL 1 MG/ML 2ML VIAL ONE (14:47)
[2019-01-23] MEDS ORDERED: fentaNYL citrate 100 MCG/2 ML VIAL ONE ×2 (14:47→15:46)
[2019-01-23] MEDS ORDERED: BUPIVACAINE 0.5 % 5 MG/1 ML MPF 30ML VIAL ONE (15:20)
[2019-01-23] MEDS ORDERED: BACITRACIN INJ 50,000 UNIT VIAL ONE (15:21)
[2019-01-23] MEDS ORDERED: BACITRACIN OINT 15 GM TUBE ONE (15:21)
--- NOTE | 2019-01-23 15:29 | Operative Report ---
Post Operative Report Pre & Post Diagnosis Operation Date: 01/20/19 09:55 Pre-Op Diagnosis: Intractable left testicular pain with ischemia Post-Op Diagnosis: Same Surgeon: Dr. Elmer Cade. Anesthesia: General anesthesia with laryngeal mask plus local Specimen: Left testis and cord, wound culture. IV fluids: 500 cc. EBL: 30 cc. Findings: No evidence of infection, severely inflamed left testis and cord. Procedure Procedure: Left scrotal orchiectomy, wound irrigation and drain replacement. Brief history: Patient is a 43-year-old inmate who is postoperative day #3 status post left scrotal expiration, approximately 6 to 7 weeks postoperative left open inguinal hernia repair. He has had testicular ischemia which is unresolved after drainage of his scrotal hydrocele and hematoma of the cord. Due to persistent pain orchiectomy is planned for symptom resolution. Risks and benefits of procedure have been discussed with the patient who vocalizes good understanding of the treatment plan. Informed consent obtained by myself today. Intravenous Zosyn provided for antibiotic coverage per primary service. Procedure: Patient was properly identified and brought into the operative suite after identification of appropriate consent of the chart. General anesthesia with laryngeal mask was initiated and patient was prepped and draped in the standard fashion for this procedure. Full timeout procedure was followed. Previous incision was opened and the left hemiscrotum was entered. Testis was identified and noted to be dusky in appearance. Significant edema and inflammation was present. Testis appeared somewhat worse off than on examination in the operating room 3 days ago. Wound was enlarged to allow for delivery from the scrotum. Significant difficulties were encountered due to inflamed and adhered tissue planes getting all the way around the testis and therefore a small superior incision was made over the obliterated external ring to allow for identification of the cord. This allowed for blunt dissection around the testicular cord which was carried distal until the testicle was able to be divided free using Bovie cautery from all the surrounding tissues of the scrotum. Once the testis was able to be well mobilized the cord was divided in at the level of the internal ring. Cord block was performed. Cord was divided and this was controlled using 0 silk and 0 Vicryl suture ligatures x3 on each side. Testis was handed off as specimen. Generous irrigation of the wound was performed using bacitracin irrigation. The nylon suture securing the Rachel drain in place was divided and previous Rachel was replaced with another quarter inch [place] drain. This was again sutured using a 3-0 nylon. Both wounds were closed in 2 layers using 2-0 Vicryl on the deep tissues and 2-0 chromic on the level of the skin. Scrotal support with fluffs was placed. Bacitracin was placed over the incision. Anesthesia was reversed and patient was transferred to the recovery room in stable condition. Follow-up CARE: Patient will be readmitted to the floor for to the primary service. Discharge with a one-week course of antibiotics when stable. Surgeon Elmer Cade MD [employer] JEREMY HERNANDEZ Estimated Blood Loss 20 Findings Consistent with Post-Op Diagnosis Specimens Left testis and cord, wound culture Description of Procedure Left scrotal orchiectomy, wound irrigation and drain replacement I attest to the content of the Intraoperative Record and any orders documented therein. Any exceptions are noted below.
--- NOTE | 2019-01-23 15:41 | Hospitalist Progress Note ---
Date of Service January 23, 2019 Assessment & Plan (1) Left groin pain: Pt underwent left scrotal orchiectomy by . Tolerated procedure well. Cont Zosyn IV Q8 hr , blood cx x 2 negative in 48 hr, urine cx <1000 colonies. Can stop Zosyn tomorrow after result of WBC. (2) Hernia, inguinal, left: S/p repair at [facility]. see above (3) Left hydrocele: - As above. (4) Diabetes: Patient with insulin dependent DM. - Continue Lantus 30u qHS - Sliding scale insulin - Glycemic consult Continues (5) Hypertension: Blood pressure well controlled at present. - Holding lisinopril for now - Continue to monitor (6) Dyslipidemia: Chronic. - Continue atorvastatin (7) Epilepsy: Chronic. - Continue Keppra (8) DVT prophylaxis: Restart Lovenox 40 mg sc for DVT prophylaxis. Subjective Pt seen and examined at the bedside. Pt underwent left scrotal orchiectomy due to left testicular ischemia s/p hernia repair in another facility 6-7 weeks ago. Pt was in intractable pain which was unimproved in 3 days and blood supply on Doppler Sonogram showed diminished flow in the left testicle. Pt is now resting in bed. No complaints at this time. Pt denies fever, chills, chest pain, SOB, abdominal pain, frequency and urgency. Left testicle removed. -wound good hemostases noted. Review of Systems Review of Systems: All systems reviewed & are unremarkable except as noted in HPI & below Physical Exam Constitutional: WD/WN, vitals as above well developed and well nourished; no acute distress and not ill appearing Eyes: PERRL, conjunctivae normal, anicteric sclerae eyes not dysmorphic ENMT: Mallampati Class: II Neck: trachea midline, no thyromegaly normal visual inspection and trachea midline; no tracheal deviation Respiratory: normal respiratory effort, lungs clear to auscultation normal respiratory effort; no respiratory distress and no labored breathing Auscultation: lungs clear to auscultation bilaterally Cardiovascular: RRR, no murmur, no edema Rate/Rhythm: regular rate and regular rhythm; not tachycardic Chest (Breasts): normal inspection/palpation of breasts Gastrointestinal (Abdomen): normal bowel sounds, soft, nontender, no hepatosplenomegaly Percussion/Palpation: abdomen soft; no guarding and abdomen not rigid Musculoskeletal: no cyanosis or clubbing, extremities motor strength 5/5 Spine: normal cervical ROM Extremities: full ROM of extremities Skin: no rashes, warm and dry no rashes and no lesions Neurologic: patellar DTR's 2+ bilat, sensation intact CN's II-XI intact bilaterally Speech / Cognition: normal speech Motor/Sensory: no tremor Psychiatric: A+Ox3, euthymic affect Orientation: alert and oriented x 3 Affect: + flat affect Genitourinary: Left testicle removed, wound C/D/I.Dressing clean. Lymphatic: no cervical or axillary lymphadenopathy no lymphadenopathy Results & Data Vital Signs (Past 12 Hours) Vital Signs Temp Pulse Resp BP Pulse Ox 01/23/19 14:48 37.2 C 71 16 131/69 98 01/23/19 07:28 37.3 C 65 17 103/56 L 95 PG Care Time/CCT Total # of Minutes Spent Total Time Spent with Patient: Total time spent is greater than 50% in coordination of care (as documented) at patient's floor/unit and/or counseling patient: (1) Diabetes Diabetes mellitus type: type 1 Diabetes mellitus complication status: without complication Qualified Code(s): E10.9 - Type 1 diabetes mellitus without complications (2) Hypertension Hypertension type: essential hypertension Qualified Code(s): I10 - Essential (primary) hypertension (3) Epilepsy Epilepsy type: unspecified
[2019-01-23] MEDS ORDERED: LABETALOL HCL IV 5 MG/ML 20ML IV PRN (15:44)
[2019-01-23] MEDS ORDERED: KETOROLAC 30 MG/ML VIAL IV PRN (15:44)
[2019-01-23] MEDS ORDERED: HYDROmorphone INJ 1 MG/ML SYRINGE IV PRN (15:44)
[2019-01-23] MEDS ORDERED: ATROPINE SULFATE 0.1 MG/ML 10ML SYR IV PRN (15:44)
[2019-01-23] MEDS ORDERED: ONDANSETRON INJ 2 MG/ML 2 ML VIAL IV PRN (15:44)
[2019-01-23] MEDS ORDERED: PROPOFOL IV EMULSION 10 MG/ML 20 ML VIAL IV ONE (15:57)
[2019-01-23] MEDS ORDERED: LIDOCAINE HCL 2% 2 ML VIAL/AMP(20MG/ML) INFIL ONE (15:57)
[2019-01-23] MEDS ORDERED: ONDANSETRON INJ 2 MG/ML 2 ML VIAL ONE (15:58)
[2019-01-23] MEDS ORDERED: INSULIN GLARGINE SOLOSTAR 100 UNITS/ML 3 ML PEN SQ SCH (16:30)
[2019-01-23] MEDS: cefTRIAXone SODIUM 2,000 MG in DEXTROSE 5% 50 ML IV SCH (17:47)
[2019-01-23] MEDS: TRAZODONE HCL 50 MG TAB PO SCH (21:04)
[2019-01-23] MEDS: levETIRAcetam 250 MG TAB PO SCH (21:04)
[2019-01-23] MEDS: FLUOXETINE HCL 20 MG CAP PO SCH (21:05)
[2019-01-23] MEDS: HYDROmorphone INJ 2 MG/ML SYR/VIAL IV PRN (21:06)
[2019-01-23] MEDS: ATORVASTATIN 40 MG TAB PO SCH (21:31)
[2019-01-24] MEDS: SODIUM CHLORIDE 0.9% 1000ML 1,000 ML IV SCH ×4 (00:43→21:17)
[2019-01-24] MEDS: HYDROmorphone INJ 2 MG/ML SYR/VIAL IV PRN ×6 (01:08→23:29)
[2019-01-24] MEDS ORDERED: INSULIN ASPART 100 UNITS/ML 3 ML PEN SC SCH (02:00)
[2019-01-24] MEDS: OXYCODONE HCL IR 5 MG TAB (IMMEDIATE RELEASE) PO PRN ×3 (03:14→17:08)
[2019-01-24] MEDS: PIPERACILLIN/TAZOBACTAM 3.375 GM in DEXTROSE 5% 100 ML IV SCH ×2 (03:16→12:39)
[2019-01-24] MEDS: ENOXAPARIN INJ 40 MG/0.4 ML SYR SQ SCH (05:51)
--- NOTE | 2019-01-24 07:44 | Anesthesiology Progress Note ---
Date of Service January 24, 2019 Anesthesia Post Procedure Vital Signs Vital Signs: Temp Pulse Pulse Resp BP Pulse Ox 01/24/19 07:21 37.0 C 80 15 99/62 L 91 01/24/19 03:11 36.8 C 67 16 100/51 L 96 01/23/19 23:31 36.8 C 70 16 112/65 97 01/23/19 20:46 37.6 C H 71 16 125/70 100 01/23/19 19:34 37.6 C H 71 16 132/88 96 01/23/19 18:30 37.7 C H 81 17 96/66 L 91 01/23/19 17:59 37.3 C 72 16 123/74 96 01/23/19 17:30 37.3 C 69 16 131/71 96 01/23/19 17:20 69 14 142/83 H 93 01/23/19 17:10 37.0 C 66 19 137/80 95 01/23/19 17:00 67 16 148/82 H 94 01/23/19 16:50 72 22 137/88 94 01/23/19 16:41 37.1 C 72 14 148/80 H 96 01/23/19 14:48 37.2 C 71 16 131/69 98 Pain Intensity Testicles: Pain Intensity: 9 Scrotal: Pain Intensity: 8 Notes Mental Status: alert / awake / arousable and participated in evaluation Nausea / Vomiting: adequately controlled Pain: adequately controlled Airway Patency, RR, SpO2: stable & adequate BP & HR: stable & adequate Hydration State: stable & adequate Anesthetic Complications: no major complications apparent and Pt Satisfied with anesthetic care
--- NOTE | 2019-01-24 08:01 | Urology Progress Note ---
Date of Service January 24, 2019 Assessment & Plan (1) Left groin pain: A/P 43 yo male POD#1 s/p L orchiectomy, POD#4 s/p drainage L hydrocoele and hematoma, postop ~7 weeks s/p LIH repair. Patient healing adequately. Would leave drain in place at least 5 days or until drainage abates. Can be removed at facility. Would cover with oral antibiotics ~ 1 week postop. Pain control per primary service. No further surgical intervention. Ice packs / scrotal support. Care d/w patient who vocalizes understanding of findings and treatment plan. Subjective 43 yo inmate, POD#1 s/p L orchiectomy, POD# 4 s/p drainage of L hydrocoele and hematoma of the cord with a history of L testicular ischemia after hernia repair ~6-7 weeks ago. Past notes are reviewed. Patient reports pain at surgical site - scrotal and L inguinal canal, somewhat improved. No f/c/n/v. Intraop findings and events reviewed. Review of Systems Constitutional: no fever (fevers yesterday) Eyes: no diplopia Ear, Nose, Mouth, Throat: no ear trauma Respiratory: no hemoptysis Cardiovascular: no chest pain Gastrointestinal: + abdominal pain Genitourinary: + genital pain Musculoskeletal: no muscle atrophy Integumentary: no acne Neurologic: no paralysis and no numbness Endocrine: + fatigue Physical Exam Constitutional: WD/WN, vitals as above no acute distress Eyes: eyes not dysmorphic Neck: trachea midline; no anterior neck swelling Respiratory: no respiratory distress and does not use accessory muscles Cardiovascular: Vessels: radial pulses present Gastrointestinal (Abdomen): Inspection/Auscultation: abdomen not distended and no abdominal edema Percussion/Palpation: abdomen nontender and + abdomen not soft Musculoskeletal: Head/Neck/Chest: normocephalic Skin: normal turgor Neurologic: CN's II-XI intact bilaterally and awake; not obtunded Psychiatric: Orientation: oriented x 3 Genitourinary: inc c/d/i x 3, drain in place, scrotum soft with decreased swelling, no evidence of infection or cellulitis, healing adequately, appropriately tender. Results & Data Vital Signs (Past 12 Hours) Vital Signs Temp Pulse Resp BP Pulse Ox 01/24/19 07:21 37.0 C 80 15 99/62 L 91 01/24/19 03:11 36.8 C 67 16 100/51 L 96 01/23/19 23:31 36.8 C 70 16 112/65 97 01/23/19 20:46 37.6 C H 71 16 125/70 100 Laboratory Results Laboratory Results - last 48 hr 01/22/19 01/22/19 01/22/19 07:50 08:19 12:06 WBC RBC Hgb Hct MCV MCH MCHC RDW Std Deviation RDW Coeff of Molly Plt Count MPV Immature Gran % (Auto) Neut % (Auto) Lymph % (Auto) [place] % (Auto) Eos % (Auto) Baso % (Auto) Immature Gran # (Auto) Neut # (Auto) Lymph # (Auto) [place] # (Auto) Eos # (Auto) Baso # (Auto) Sodium 137 Potassium 3.8 D Chloride 101 Carbon Dioxide 32 Anion Gap 5.0 BUN 9 Creatinine 0.94 Est Cr Clr Drug Dosing 109.6 Est GFR ( Amer) 114.6 Est GFR (Non-Af Amer) 98.9 BUN/Creatinine Ratio 9.5 L Glucose 210 H POC Glucose 207 H 272 H Calcium 8.9 Total Bilirubin 0.3 AST 9 L ALT 10 L Alkaline Phosphatase 67 Total Protein 6.8 Albumin 2.4 L Globulin 4.4 H Albumin/Globulin Ratio 0.5 L 01/22/19 01/22/19 01/23/19 17:26 20:37 05:41 WBC RBC Hgb Hct MCV MCH MCHC RDW Std Deviation RDW Coeff of Molly Plt Count MPV Immature Gran % (Auto) Neut % (Auto) Lymph % (Auto) [place] % (Auto) Eos % (Auto) Baso % (Auto) Immature Gran # (Auto) Neut # (Auto) Lymph # (Auto) [place] # (Auto) Eos # (Auto) Baso # (Auto) Sodium Potassium Chloride Carbon Dioxide Anion Gap BUN Creatinine Est Cr Clr Drug Dosing Est GFR ( Amer) Est GFR (Non-Af Amer) BUN/Creatinine Ratio Glucose POC Glucose 151 H 147 H 88 Calcium Total Bilirubin AST ALT Alkaline Phosphatase Total Protein Albumin Globulin Albumin/Globulin Ratio 01/23/19 01/23/19 01/23/19 05:59 05:59 11:57 WBC 8.56 RBC 3.57 L Hgb 11.1 L Hct 33.3 L MCV 93.3 MCH 31.1 MCHC 33.3 RDW Std Deviation 44.4 RDW Coeff of Molly 12.9 Plt Count 325 MPV 9.4 Immature Gran % (Auto) 0.2 Neut % (Auto) 54.9 Lymph % (Auto) 28.4 [place] % (Auto) 10.3 Eos % (Auto) 5.8 Baso % (Auto) 0.4 Immature Gran # (Auto) 0.02 Neut # (Auto) 4.70 Lymph # (Auto) 2.43 [place] # (Auto) 0.88 H Eos # (Auto) 0.50 Baso # (Auto) 0.03 Sodium 139 Potassium 3.9 Chloride 103 Carbon Dioxide 32 Anion Gap 4.0 BUN 11 Creatinine 0.97 Est Cr Clr Drug Dosing 106.3 Est GFR ( Amer) 110.4 Est GFR (Non-Af Amer) 95.2 BUN/Creatinine Ratio 11.2 Glucose 87 POC Glucose 71 Calcium 8.9 Total Bilirubin 0.6 AST 10 L ALT 10 L Alkaline Phosphatase 62 Total Protein 7.2 Albumin 2.5 L Globulin 4.7 H Albumin/Globulin Ratio 0.5 L 01/23/19 01/23/19 01/24/19 16:47 20:42 01:51 WBC RBC Hgb Hct MCV MCH MCHC RDW Std Deviation RDW Coeff of Molly Plt Count MPV Immature Gran % (Auto) Neut % (Auto) Lymph % (Auto) [place] % (Auto) Eos % (Auto) Baso % (Auto) Immature Gran # (Auto) Neut # (Auto) Lymph # (Auto) [place] # (Auto) Eos # (Auto) Baso # (Auto) Sodium Potassium Chloride Carbon Dioxide Anion Gap BUN Creatinine Est Cr Clr Drug Dosing Est GFR ( Amer) Est GFR (Non-Af Amer) BUN/Creatinine Ratio Glucose POC Glucose 116 H 330 H* 246 H Calcium Total Bilirubin AST ALT Alkaline Phosphatase Total Protein Albumin Globulin Albumin/Globulin Ratio
[2019-01-24] MEDS: KETOROLAC TROMETHAMINE 15 MG/ML VIAL IV PRN (08:05)
[2019-01-24] MEDS: ACETAMINOPHEN 325 MG TAB PO PRN (08:06)
[2019-01-24 08:26] LABS: Albumin Globulin Ratio 0.6 (0.9-2); Albumin Level 2.4 gm/dl (3.4-5.0); BUN Creatinine Ratio 9.5 (10-20); Bilirubin,Total 0.4 mg/dl (0.2-1); Calcium 8.7 mg/dl (8.5-10.1); Est GFR (African American) 105.1; Est GFR (Non-African American) 90.7; Globulin 4.3 gm/dl (2.5-4.0); Potassium 4.5 mmol/L (3.5-5.1); Total Protein 6.7 gm/dl (6.4-8.2)
[2019-01-24] MEDS ORDERED: PHARMACY GLYCEMIC MGMT CONSULT STA (08:34)
[2019-01-24 08:38] LABS: Beta-Hydroxybutyrate 10.11 mg/dl (0.2-2.81)
[2019-01-24] MEDS: INSULIN ASPART 100 UNITS/ML 3 ML PEN SC SCH ×3 (09:25→19:26)
--- NOTE | 2019-01-24 11:26 | Pharmacy Report ---
Pharmacy Glycemic Short Note 2 - Date of Service January 24, 2019 - Glycemic Short BSG Results (Last 24 hours): 01/23/19 01/23/19 01/23/19 11:57 16:47 20:42 Glucose POC Glucose 71 116 H 330 H* 01/24/19 01/24/19 01/24/19 01:51 07:32 08:16 Glucose 320 H* POC Glucose 246 H 327 H* 01/24/19 01/24/19 01/24/19 08:17 08:18 10:23 Glucose POC Glucose 351 H* 357 H* 409 H* OUTPATIENT ANTIDIABETIC REGIMEN: * Lantus 30 units @1630; Regular sliding scale * A1c = 12.1 ASSESSMENT: 01/24: * Fasting BSG this morning elevated at 357 mg/dL - was NPO for most of yesterday then transitioned to diet at dinner time. No insulin given yesterday morning as BSGs w/in range at 88-71 mg/dL and patient NPO. Patient ate meals at dinner and at HS. Feel that lack of any insulin given yesterday morning likely contributed to BSGs spiking up that evening and continuing to this morning * Called nurse and told her to give correctional insulin right away this morning for elevated BSG * Plan was to recheck BSG in 2 hrs once insulin given. Insulin given later closer to 0930 so BSG recheck approximately ~1 hr after given at 400. Told nurse probably not seeing full effect of novolog since patient just ate, plan to recheck at lunchtime * Lunchtime trending down slowly - patient does tend to drop with BSGs pretty significantly from lunch to dinner therefore hesitant to change just yet * Will add overnight checks on for tonight for additional coverage 01/23: * BSGs over the previous 24h: [phone]. He is NPO. Given that his BSGs have trended down, we will provide a reduced lantus dose this evening. PLAN FOR INPATIENT GLYCEMIC CONTROL: * Basal insulin * Lantus 30 units daily (home dose) * Bolus insulin - tighten * NovoLog per scale ACHS or Q6hrs while NPO * Goal Range: Low 110 mg/dL - High 140 mg/dL * Correction Factor: 25 mg/dL/unit * Nutritional / Prandial insulin per carb ratio of 1 unit per 8 grams CHO consumed
[2019-01-24] MEDS: CARBOHYDRATES FOR HYPOGLYCEMIA PO PRN (16:16)
[2019-01-24] MEDS ORDERED: INSULIN GLARGINE SOLOSTAR 100 UNITS/ML 3 ML PEN SQ SCH (16:30)
[2019-01-24] MEDS: cefTRIAXone SODIUM 2,000 MG in DEXTROSE 5% 50 ML IV SCH (16:46)
[2019-01-24] MEDS ORDERED: INSULIN GLARGINE SOLOSTAR 100 UNITS/ML 3 ML PEN SQ ONE (19:00)
--- NOTE | 2019-01-24 21:36 | Hospitalist Progress Note ---
Date of Service January 24, 2019 Assessment & Plan (1) Left groin pain: Pt underwent left scrotal orchiectomy by . Tolerated procedure well. Cont Zosyn IV Q8 hr , blood cx x 2 negative in 48 hr, urine cx <1000 colonies. Stopped zosyn, will monitor scrotu. Will need to control patient's pain. Patient is requiring large amount of narcotics IV. (2) Hernia, inguinal, left: S/p repair at [facility]. see above (3) Left hydrocele: - As above. (4) Diabetes: Patient with insulin dependent DM. - Continue Lantus 30u qHS - Sliding scale insulin - Glycemic consult Continues (5) Hypertension: Blood pressure well controlled at present. - Holding lisinopril for now - Continue to monitor (6) Dyslipidemia: Chronic. - Continue atorvastatin (7) Epilepsy: Chronic. - Continue Keppra (8) DVT prophylaxis: Restart Lovenox 40 mg sc for DVT prophylaxis. Spent 35 minutes in management of patient. Subjective 43 yo male is complaining of pain in his scrotum. He states the pain is severe in his scrotum and he continues to require IV dilaudid. Review of Systems Review of Systems: All systems reviewed & are unremarkable except as noted in HPI & below Physical Exam Physical Exam: Constitutional: WD/WN, vitals as above well developed and well nourished; no acute distress and not ill appearing Neck: trachea midline, no thyromegaly normal visual inspection and trachea midline; no tracheal deviation Respiratory: normal respiratory effort, lungs clear to auscultation normal respiratory effort; no respiratory distress and no labored breathing Cardiovascular: RRR, no murmur, no edema Rate/Rhythm: regular rate and regular rhythm; not tachycardic Chest (Breasts): normal inspection/palpation of breasts Gastrointestinal (Abdomen): normal bowel sounds, soft, nontender, no hepatosplenomegaly Musculoskeletal: no cyanosis or clubbing, extremities motor strength 5/5 Spine: normal cervical ROM Extremities: full ROM of extremities Skin: no rashes, warm and dry no rashes and no lesions Neurologic: Speech / Cognition: normal speech Motor/Sensory: no tremor Psychiatric: A+Ox3, euthymic affect Orientation: alert and oriented x 3 Genitourinary: Left testicle removed, wound C/D/I.Dressing clean. Scrotum appears somewhat erythematous, tender to palpation. Lymphatic: no cervical or axillary lymphadenopathy no lymphadenopathy Results & Data Vital Signs (Past 12 Hours) Vital Signs Temp Pulse Resp BP Pulse Ox 01/24/19 15:23 36.8 C 72 18 113/65 97 PG Care Time/CCT Total # of Minutes Spent Total Time Spent with Patient: Total time spent is greater than 50% in coordination of care (as documented) at patient's floor/unit and/or counseling patient: (1) Epilepsy Epilepsy type: unspecified (2) Diabetes Diabetes mellitus complication status: without complication Diabetes mellitus type: type 1 Qualified Code(s): E10.9 - Type 1 diabetes mellitus without complications (3) Hypertension Hypertension type: essential hypertension Qualified Code(s): I10 - Essential (primary) hypertension
[2019-01-24] MEDS: TRAZODONE HCL 50 MG TAB PO SCH (22:02)
[2019-01-24] MEDS: FLUOXETINE HCL 20 MG CAP PO SCH (22:02)
[2019-01-24] MEDS: levETIRAcetam 250 MG TAB PO SCH (22:02)
[2019-01-24] MEDS: ATORVASTATIN 40 MG TAB PO SCH (22:28)
[2019-01-25] MEDS: INSULIN ASPART 100 UNITS/ML 3 ML PEN SC SCH ×6 (00:12→20:57)
[2019-01-25] MEDS: HYDROmorphone INJ 2 MG/ML SYR/VIAL IV PRN ×5 (04:22→20:58)
[2019-01-25] MEDS: SODIUM CHLORIDE 0.9% 1000ML 1,000 ML IV SCH ×3 (04:22→20:47)
[2019-01-25] MEDS: ENOXAPARIN INJ 40 MG/0.4 ML SYR SQ SCH (05:46)
[2019-01-25 09:05] LABS: Albumin Globulin Ratio 0.5 (0.9-2); Albumin Level 2.2 gm/dl (3.4-5.0); BUN Creatinine Ratio 7.5 (10-20); Bilirubin,Total 0.3 mg/dl (0.2-1); Creatinine Clr Calc Pharmacy 127.2 ml/min; Est GFR (African American) 126.2; Est GFR (Non-African American) 108.9; Globulin 4.3 gm/dl (2.5-4.0); Potassium 3.8 mmol/L (3.5-5.1); Total Protein 6.5 gm/dl (6.4-8.2)
--- NOTE | 2019-01-25 11:47 | Pharmacy Report ---
Pharmacy Glycemic Short Note 2 - Date of Service January 25, 2019 - Glycemic Short BSG Results (Last 24 hours): 01/24/19 01/24/19 01/24/19 11:59 16:06 16:07 Glucose POC Glucose 331 H* 66 L* 69 L* 01/24/19 01/24/19 01/24/19 16:30 17:06 19:09 Glucose POC Glucose 87 125 H 321 H* 01/24/19 01/24/19 01/24/19 19:11 20:48 20:50 Glucose POC Glucose 342 H* 333 H* 318 H* 01/25/19 01/25/19 01/25/19 00:05 04:21 08:09 Glucose POC Glucose 288 H 157 H 145 H 01/25/19 08:12 Glucose 141 H POC Glucose OUTPATIENT ANTIDIABETIC REGIMEN: * Lantus 30 units @1630; Regular sliding scale * A1c = 12.1 ASSESSMENT: 01/25: * Patient received total of 89 units of insulin yesterday, of which 30 were basal * Patients BSG trended down to 69 yesterday afternoon, given an orange juice and on recheck up to 82 mg/dL * Lower BSG likely related to too much carb coverage earlier that day. Patient ate a very large lunch with 100 carbs * Fasting BSG this morning improving now at 141 mg/dL - will continue same Lantus of 30 units * Will have tighter CF/CR for breakfast but plan to loosen at lunchtime since patient does tend to trend down quickly 01/24: * Fasting BSG this morning elevated at 357 mg/dL - was NPO for most of yesterday then transitioned to diet at dinner time. No insulin given yesterday morning as BSGs w/in range at 88-71 mg/dL and patient NPO. Patient ate meals at dinner and at HS. Feel that lack of any insulin given yesterday morning likely contributed to BSGs spiking up that evening and continuing to this morning * Called nurse and told her to give correctional insulin right away this morning for elevated BSG * Plan was to recheck BSG in 2 hrs once insulin given. Insulin given later closer to 0930 so BSG recheck approximately ~1 hr after given at 400. Told nurse probably not seeing full effect of novolog since patient just ate, plan to recheck at lunchtime * Lunchtime trending down slowly - patient does tend to drop with BSGs pretty significantly from lunch to dinner therefore hesitant to change just yet * Will add overnight checks on for tonight for additional coverage 01/23: * BSGs over the previous 24h: [phone]. He is NPO. Given that his BSGs have trended down, we will provide a reduced lantus dose this evening. PLAN FOR INPATIENT GLYCEMIC CONTROL: * Basal insulin * Lantus 30 units daily (home dose) * Bolus insulin - tighten * NovoLog per scale ACHS or Q6hrs while NPO * Goal Range: Low 110 mg/dL - High 140 mg/dL * Correction Factor: 30 mg/dL/unit * Nutritional / Prandial insulin per carb ratio of 1 unit per 10 grams CHO consumed
[2019-01-25 13:33] LABS: Chlamydia Trach RNA NOT DETECTED (NOT DETECTED); GC (Neis gonorrhoeae) RNA NOT DETECTED (NOT DETECTED)
[2019-01-25] MEDS: cefTRIAXone SODIUM 2,000 MG in DEXTROSE 5% 50 ML IV SCH (16:45)
[2019-01-25] MEDS: INSULIN GLARGINE SOLOSTAR 100 UNITS/ML 3 ML PEN SQ SCH (19:07)
[2019-01-25] MEDS: FLUOXETINE HCL 20 MG CAP PO SCH (20:49)
[2019-01-25] MEDS: ATORVASTATIN 40 MG TAB PO SCH (20:49)
[2019-01-25] MEDS: levETIRAcetam 250 MG TAB PO SCH (20:49)
[2019-01-25] MEDS: TRAZODONE HCL 50 MG TAB PO SCH (20:49)
--- NOTE | 2019-01-25 23:30 | Hospitalist Progress Note ---
Date of Service January 25, 2019 Assessment & Plan (1) Left groin pain: Pt underwent left scrotal orchiectomy by . Tolerated procedure well. Cont Zosyn IV Q8 hr , blood cx x 2 negative in 48 hr, urine cx <1000 colonies. Stopped zosyn, will monitor scrotu. Will need to control patient's pain. Patient is requiring large amount of narcotics IV. Will have patient be evaluated by Urology. Plan is to discharge if cleared by Urology. (2) Hernia, inguinal, left: S/p repair at [facility]. see above (3) Left hydrocele: - As above. (4) Diabetes: Patient with insulin dependent DM. - Continue Lantus 30u qHS - Sliding scale insulin - Glycemic consult Continues (5) Hypertension: Blood pressure well controlled at present. - Holding lisinopril for now - Continue to monitor (6) Dyslipidemia: Chronic. - Continue atorvastatin (7) Epilepsy: Chronic. - Continue Keppra (8) DVT prophylaxis: Restart Lovenox 40 mg sc for DVT prophylaxis. Spent 25 minutes in management of patient. Subjective 43 yo male reports having no new symptoms today. He continues to have pain in his scrotum. Patient states he requires dilaudid. Review of Systems Review of Systems: All systems reviewed & are unremarkable except as noted in HPI & below Physical Exam Physical Exam: Constitutional: WD/WN, vitals as above well developed and well nourished; no acute distress and not ill appearing Neck: trachea midline, no thyromegaly normal visual inspection and trachea midline; no tracheal deviation Respiratory: normal respiratory effort, lungs clear to auscultation normal respiratory effort; no respiratory distress and no labored breathing Cardiovascular: RRR, no murmur, no edema Rate/Rhythm: regular rate and regular rhythm; not tachycardic Chest (Breasts): normal inspection/palpation of breasts Gastrointestinal (Abdomen): normal bowel sounds, soft, nontender, no hepatosplenomegaly Musculoskeletal: no cyanosis or clubbing, Extremities: full ROM of extremities Skin: no rashes, warm and dry no rashes and no lesions Neurologic: Speech / Cognition: normal speech Psychiatric: A+Ox3, euthymic affect Genitourinary: Left testicle removed, wound C/D/I.Dressing clean. Scrotum appears less erythematous, tender to palpation. Lymphatic: no cervical or axillary lymphadenopathy no lymphadenopathy Results & Data Vital Signs (Past 12 Hours) Vital Signs Temp Pulse Resp BP Pulse Ox 01/25/19 16:37 37.5 C 72 17 137/71 98 PG Care Time/CCT Total # of Minutes Spent Total Time Spent with Patient: Total time spent is greater than 50% in coordination of care (as documented) at patient's floor/unit and/or counseling patient: (1) Epilepsy Epilepsy type: unspecified (2) Diabetes Diabetes mellitus complication status: without complication Diabetes mellitus type: type 1 Qualified Code(s): E10.9 - Type 1 diabetes mellitus without complications (3) Hypertension Hypertension type: essential hypertension Qualified Code(s): I10 - Essential (primary) hypertension
[2019-01-26] MEDS: HYDROmorphone INJ 2 MG/ML SYR/VIAL IV PRN ×5 (01:00→17:53)
[2019-01-26] MEDS: SODIUM CHLORIDE 0.9% 1000ML 1,000 ML IV SCH (04:34)
[2019-01-26] MEDS: ENOXAPARIN INJ 40 MG/0.4 ML SYR SQ SCH (05:23)
[2019-01-26 08:11] LABS: Albumin Level 2.4 gm/dl (3.4-5.0); BUN Creatinine Ratio 7.5 (10-20); Calcium 8.7 mg/dl (8.5-10.1); Creatinine Clr Calc Pharmacy 115.8 ml/min; Est GFR (African American) 121.4; Est GFR (Non-African American) 104.7; Potassium 3.5 mmol/L (3.5-5.1)
[2019-01-26 08:14] LABS: Albumin Globulin Ratio 0.6 (0.9-2); Bilirubin,Total 0.2 mg/dl (0.2-1); Globulin 4.2 gm/dl (2.5-4.0); Total Protein 6.6 gm/dl (6.4-8.2)
[2019-01-26] MEDS: INSULIN ASPART 100 UNITS/ML 3 ML PEN SC SCH ×3 (09:18→18:23)
[2019-01-26] MEDS ORDERED: PHENAZOPYRIDINE HCL 200 MG TAB PO PRN (15:25)
--- NOTE | 2019-01-26 15:40 | Urology Progress Note ---
Date of Service January 26, 2019 Assessment & Plan (1) Left hydrocele: Mild diffuse redness and fullness of left scrotum consistent with postoperative healing. No gross evidence of infection upon exam today. Recommend continued antibiotic coverage x 1 week postop. Will add pyridium PRN for intermittent mild dysuria. Recommend transition to PO pain medication and discharge to facility with andre removal on POD #5 (Thursday). Continued ice, scrotal support encouraged. Outpatient URO follow up as scheduled. (2) Left groin pain: Subjective 43 YO M POD #3 s/p left orchiectomy, POD #6 s/p drainage of left hydrocele and hematoma of cord. Asked to see patient today due to ongoing orchalgia. Patient reports needing scheduled pain medication for control. Also reports some dysuria. No difficulty or pain with BM. No hematuria. No abdominal pain or distention. Feels that he is emptying bladder completely. Review of Systems Review of Systems: All systems reviewed & are unremarkable except as noted in HPI & below Physical Exam Physical Exam: WN/WD NAD. Resp effort normal. No JVD. Abd soft, nontender. : Bladder nontender/nondistended; diffuse mild redness and fullness left scrotum consistent with postoperative swelling, no warmth; scrotal incisions well approximated without drainage; +serosang drainage on fluffs via andre; no spreading redness to groin or thigh; normal perineum; normal circumcised phallus. Results & Data Vital Signs (Past 12 Hours) Vital Signs Temp Pulse Resp BP Pulse Ox 01/26/19 14:58 37.2 C 65 17 120/69 95 01/26/19 07:22 36.7 C 64 16 121/74 97
[2019-01-26] MEDS: cefTRIAXone SODIUM 2,000 MG in DEXTROSE 5% 50 ML IV SCH (16:21)
--- NOTE | 2019-01-26 17:22 | Pharmacy Report ---
Pharmacy Glycemic Short Note 2 - Date of Service January 26, 2019 - Glycemic Short BSG Results (Last 24 hours): 01/25/19 01/25/19 01/26/19 17:16 20:36 07:15 Glucose 62 L POC Glucose 149 H 220 H 01/26/19 01/26/19 07:58 12:02 Glucose POC Glucose 73 141 H Discharge Recommendations: Increase lantus to 35u HS Regular insulin: preferred regimen would be utilizing a correction factor and carb ratio: 30 and 10 respectively. If he us unable or unwilling to use a preferred regimen he could use a SSI: 140- 170=1 unit, 171-200=2 units, 201-230=3 units and so on
[2019-01-26] MEDS: INSULIN GLARGINE SOLOSTAR 100 UNITS/ML 3 ML PEN SQ SCH (18:24)
--- NOTE | 2019-02-03 07:52 | Discharge Summary ---
Date of Service January 26, 2019 Admission HPI Per Admitting Provider Hernán Flowers is a 43yo C male with history of HTN/HLP/DM/Epilepsy, recent left inguinal hernia repair presenting with worsening left groin pain and testicular swelling and firmness. Patient reports chills, fever of 101 and hematuria. No additional complaints at this time Principal Diagnosis Intractable left testicular pain with ischemia Discharge Exam Constitutional: WD/WN, vitals as above well developed and well nourished; no acute distress and not ill appearing Neck: trachea midline, no thyromegaly normal visual inspection and trachea midline; no tracheal deviation Respiratory: normal respiratory effort, lungs clear to auscultation normal respiratory effort; no respiratory distress and no labored breathing Cardiovascular: RRR, no murmur, no edema Rate/Rhythm: regular rate and regular rhythm; not tachycardic Chest (Breasts): normal inspection/palpation of breasts Gastrointestinal (Abdomen): normal bowel sounds, soft, nontender, no hepatosplenomegaly Musculoskeletal: no cyanosis or clubbing, Extremities: full ROM of extremities Skin: no rashes, warm and dry no rashes and no lesions Neurologic: Speech / Cognition: normal speech Psychiatric: A+Ox3, euthymic affect Genitourinary: Left testicle removed, wound C/D/I.Dressing clean. Scrotum appears less erythematous, tender to palpation. Lymphatic: no cervical or axillary lymphadenopathy no lymphadenopathy Discharge Data Allergies Allergy/AdvReac Type Severity Reaction Status Date / Time iodine Allergy Severe Unknown Verified 01/16/19 15:25 shellfish derived Allergy Severe Unknown Verified 01/16/19 15:25 penicillin G Allergy Unknown Verified 01/17/19 03:34 Consultations 01/16/19 17:25 ED Decision to Admit Stat 01/16/19 18:06 Consult Urology Stat 01/18/19 09:40 Consult General Surgery Routine Procedures Performed Operation Date: 01/20/19 09:55 Actual Procedures p Left Scrotal Exploration, Hematoma Evacuation of reactive hydrocele and hematoma of cord, excision of epidiymis left testis(Left) - Elmer Cade MD Operation Date: 01/23/19 14:00 Actual Procedures p Left Scrotal Orchiectomy(Left) - Elmer Cade MD Ordered Studies 01/16/19 15:36 US scrotum/testicle Stat 01/16/19 17:35 CT pelvis w/IV con only Stat 01/17/19 13:00 US scrotum/testicle Urgent 01/21/19 14:28 US scrotum/testicle Stat Hospital Course (1) Left groin pain: Pt underwent left scrotal orchiectomy by . Tolerated procedure well. Cont Zosyn IV Q8 hr , blood cx x 2 negative in 48 hr, urine cx <1000 colonies. Stopped zosyn, will monitor scrotu. Will need to control patient's pain. Patient is requiring large amount of narcotics IV. Will have patient be evaluated by Urology. Plan is to discharge if cleared by Urology. On day of discharge: Urology stated the following. Mild diffuse redness and fullness of left scrotum consistent with postoperative healing. No gross evidence of infection upon exam today. Recommend continued antibiotic coverage x 1 week postop. Will add pyridium PRN for intermittent mild dysuria. Recommend transition to PO pain medication and discharge to facility with andre removal on POD #5 (Thursday). Continued ice, scrotal support encouraged. Outpatient URO follow up as scheduled. (2) Hernia, inguinal, left: S/p repair at [facility]. see above (3) Left hydrocele: - As above. (4) Diabetes: Patient with insulin dependent DM. - Continue Lantus 30u qHS - Sliding scale insulin - Glycemic consult Continues On discharge, his regimen was changed. Please refer to discharge meds. (5) Hypertension: Blood pressure well controlled at present. - Holding lisinopril for now - Continue to monitor (6) Dyslipidemia: Chronic. - Continue atorvastatin (7) Epilepsy: Chronic. - Continue Keppra (8) DVT prophylaxis: During hospital stay, Lovenox 40 mg sc for DVT prophylaxis. Total Time Total Time Spent Total Time Spent (In Minutes): 32 Total Time Includes: Examination of the Patient, Discharge Planning and Medication Reconciliation Discharge Plan Discharge Items [facility] Reason For Visit: POSSIBLE TORSION Discharge Diagnosis: Intractable left testicular pain with ischemia Discharge Goals: Decrease discomfort Activity: Resume your previous activity Non-emergency contact: Primary Care Provider Call non-emergency contact if: you have any medication questions Follow-up/Referrals: Shree EUGENE [Primary Care Provider] - Diet: Regular Addtl Provider Instructions: Recommend continued antibiotic coverage x 1 week postop. Will add pyridium PRN for intermittent mild dysuria. Recommend transition to PO pain medication and discharge to facility with andre removal on POD #5 (Thursday). Continued ice, scrotal support encouraged. Outpatient URO follow up as scheduled. F/U with Urology in 2 weeks Would leave drain in place at least until Thursday or until drainage abates. Can be removed at facility. (2) Left groin pain: Prescriptions: New acetaminophen [Mapap (acetaminophen)] 325 mg Tablet 650 mg PO Q4H PRN (Reason: pain) Qty: 10 RF: 0 oxycodone 5 mg Tablet 10 mg PO Q4HWA PRN (Reason: moderate pain) Qty: 30 RF: 0 oxycodone 15 mg tablet 15 mg PO Q6H PRN (Reason: severe pain) Qty: 30 RF: 0 phenazopyridine [Pyridium] 200 mg Tablet 200 mg PO TID PRN (Reason: intermitten dysuria) Qty: 6 RF: 0 Continued atorvastatin 40 mg Tablet 40 mg PO HS RF: 0 trazodone 50 mg Tablet 50 mg PO HS RF: 0 aspirin [Aspir-81] 81 mg Tablet,Delayed Release (Dr/Ec) 81 mg PO DAILY RF: 0 levetiracetam 250 mg Tablet 250 mg PO HS RF: 0 lisinopril 5 mg Tablet 5 mg PO DAILY RF: 0 fluoxetine 20 mg Capsule 20 mg PO HS RF: 0 ibuprofen 600 mg Tablet 600 mg PO TID PRN (Reason: Pain) RF: 0 Humulin R Regular U-100 Insuln 100 unit/mL Solution 1 sliding scale dose SUBCUT USEASDIRECTD Qty: 0 RF: 0 Changed Lantus Solostar U-100 Insulin 100 unit/mL (3 mL) Insulin Pen 35 unit SUBCUT .DAILY AT 1630 Qty: 0 RF: 0 Stand-Alone Forms: [employer] [facility] [employer]/Other Patient Handouts: Diabetes Type 1 Coping, Diabetes Manage A1C Test Discharge Orders: Discharge Order (Routine); Ordered 01/26/19 Ordered By: Jose Francisco Bey Admission Data Admit Date/Time: 01/16/19 20:04 Attending Provider: Jose Francisco Bey Admit Provider: Shivani Mejia Primary Care Provider: Shree EUGENE Other Providers: Earnest Cade ; Rupert Galvan ; Rm Singh II ; Hernán Odonnell ; Clover Farah ; Margarito Sinha ; Yovanny Perez ; Caesar Allen Jr ; Adi Lazaro ; Carmen Rolle ; Filipe Fleming ; Jael Pickering ; Shai Shultz Service: Surgical Services Other Interventions: Discharge Summary Assessment (RN) Last Done: 01/26/19 19:18 DC Date/Time DO NOT enter until pt leaves facility: 01/26/19 19:19
== END 2019-01-26 19:19 | DRG 909 ==
LOC: ED 14:59 → SUATTDRO 20:04 → 3N 20:04